=== PATIENT | female | born 2005 | race Caucasian/White ===

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

== ENCOUNTER 2025-01-11 18:35 | Emergency (ER) | payer MEDICAID, SELFPAY ==
--- OUTSIDE RECORDS SUMMARY | 2014-01-27 06:10 | XMS_ITS | Continuity of Care Document ---
Author Organization [facility] Address [address] [place] [address] Care Team Providers Care [employer] Guid[employer] Counselor Name Role Phone Unavailable Unavailable Unavailable Allergies, Adverse Reactions, Alerts Substance Reaction Status Criticality No Known Allergies Active No Inform ation Medications Medication Instructions Dosage Effective Dates (start - stop) Status Comments No Drug Therapy Prescribed Procedures Procedure Date OFFICE/OUTPATIENT VISIT, EST Most recent systolic blood pressure less than 130 Diast bp <80 mm hg VISUAL ACUITY SCREEN PURE TONE HEARING TEST, AIR PREV VISIT, NEW, AGE 5-11 Advance Directives Directive Yes / No Effective Date File Name No Information Encounters Encounter Description Practice Location Reason(s) For Visit Diagnoses Date Provider Providers Copied on Encounter [facility], [address], [place], [place], [id number] , [facility] [place] ear lavage (chief complaint) No Information 0- 4 No Information OFFICE/OUTPA TIENT VISIT, EST [facility], [address], [place], [place], [phone] , [facility] [place] concerns with hearing (chief complaint) ear wax (chief complaint) Excessive ear waxAllergic rhinitisURI, acuteDehydration 3-201 4 No Information PREV VISIT, NEW, AGE 5-11 [facility], [address], [place], [place], [phone] , [facility] [place] Well child - 8 Years (chief complaint) burning and pain w/ urination (chief complaint) Routine or child health checkRefractive errorsDehydrationU rethritisRoutine infant or child health check 8201 4 No Information Family History Family Member Type Diagnosis Age At Onset No Information Payers Payer name Insurance type Covered alliance party ID Juju cuenca(s) Hilario STROUD [id number] Social History Type Description Quantity Date Captured Comments Alcohol Use Details Unknown Caffeine Use Details Unknown Tobacco Use Status No Information Smoking Status No Information Sex Female Chief Complaint And Reason For Visit From encounter dated '01/27/2014 11:10'. ear lavage (chief complaint). Description: ear lavage given bilateral ears Reason For Referral Reason For Referral No Information Plan Of Treatment Date Type Action Status Future Order: Lab Order URINALYS IS, MACROSCOPIC ([id number]), Ordered on: Ordered Future Order: Lab Order CULTURE, URINE, ROUTINE (395), Ordered on: Ordered History Of Present Illness Encounter Date Complaint History Of Prese nt Illness ear lavage ear lavage given bilateral ears concerns with hearing ear wax Functional Status Date Functional Assessmen t No Information Medications Administered Medication Instructions Dosage Effective Dates (start - stop) Status Comments No Drug Therapy Prescribed Instructions Date Instruction Additional Infor awa Nurse appt for ear lavage of bot h ears Related to Excessive ear wax Loratadine (claritin ) or cetirizine (zyrtec) syrup two teaspoonfuls one time a day for itchy runny nose or itchy congested nose...stop if your child gets too sleepy or charles.... this medication is over the counter Related to Allergic rhinitis fever medication as needed Relat ed to URI, acute Drink enough water t o make urine clear or light yellow most of the time. It is normal for the urine to be very yellow when you first get up and right after taking a vitamin pill. Related to Dehydration Assessments Type Assessment Date No Information Patient Care Teams Name Effective Dates (start - stop) Status Members No Information
--- OUTSIDE RECORDS SUMMARY | 2024-04-27 09:12 | XMS_ITS | Continuity of Care Document ---
Author Organization [facility] Address [address] [address] Phone Care Team Providers Care Senior Military Analyst Name Role Phone Saba Garcia RN Unavailable Unavailable Allergies, Adverse Reactions, Alerts Substance Reaction Status Criticality [place] And Derivatives Hives(severe)Hive s(severe)Facial swelling(severe) Active No Information Medications Medication Instructions Dosage Effective Dates (start - stop) Status Comments prazosin 2 mg capsule take 1 capsule by oral route every bedtime 2 MG - Active prazosin 1 mg capsule take 1 capsule PO QHS with 2mg capsule for total 3mg dose - Active naltrexone 50 mg tablet take 1 tablet by oral route every day 50 MG - Active residential melatonin 1 mg tablet Take 1 tab po QHS PRN insomnia - Active residential buspirone 10 mg tablet take 1 tablet by oral route 2 times every day and 1 tab po daily PRN acute agitation - Active residential mirtazapine 15 mg tablet take 1 tablet by oral route every day before bedtime 15 MG - Active residential sertraline 100 mg tablet take 1.5 tablet by oral route every day 150 MG - Active residential nicotine 21 mg/24 hr daily transdermal patch apply 1 patch by transdermal route every day and remove at bedtime 21 MG - Active residential Procedures Procedure Date Non-Billable Service Diagnostic Assessment Telehealth 2023 Non-Billable Service RN ROSAURA Nsg Serv Non-Billable Service Non-Billable Service ROSAURA Case Mgmt ROSAURA Case Mgmt Room And Board ROSAURA Case Mgmt Room And Board Room And Board ROSAURA Case Mgmt ROSAURA Case Mgmt ROSAURA Case Mgmt ROSAURA IOP Telehealth Counseling/Therapy 53-90 min Room And Board OFFICE/OUTPATIENT VISIT, EST Room And Board RN ROSAURA Nsg Serv Room And Board Non-Billable Service Room And Board Room And Board Room And Board Room And Board ROSAURA IOP Telehealth RN ROSAURA Nsg Serv Counseling/Therapy 38-52 min Room And Board Room And Board Counseling/Therapy 53-90 min Room And Board Room And Board ROSAURA IOP Telehealth Room And Board Room And Board Room And Board ROASURA Case Mgmt Room And Board ROSAURA IOP OFFICE/OUTPATIENT VISIT, EST Room And Board Counseling/Therapy 53-90 min RN ROSAURA Nsg Serv Room And Board ROSAURA IOP ROSAURA Case Mgmt Room And Board ROSAURA IOP Telehealth Room And Board Room And Board ROSAURA Case Mgmt Non-Billable Service Room And Board Room And Board ROSAURA IOP Telehealth ROSAURA Case Mgmt Telehealth Room And Board Counseling/Therapy 38-52 min ROS[facility]A IOP Room And Board Counseling/Therapy 38-52 min Non-Billable Service Room And Board ROSAURA IOP Room And Board ROSAURA IOP Telehealth Room And Board Room And Board Room And Board ROSAURA IOP Telehealth Room And Board Counseling/Therapy 16-37 min [facility]A IOP Telehealth OFFICE/OUTPATIENT VISIT, EST RN ROSAURA Nsg Serv RN ROSAURA Nsg Serv Room And Board Non-Billable Service RN ROSAURA Nsg Serv Non-Billable Service Residential Treatment Room And Board Non-Billable Service Residential Treatment Room And Board Non-Billable Service Room And Board Residential Treatment Residential Treatment Room And Board Room And Board Residential Treatment Non-Billable Service Room And Board Residential Treatment Room And Board Residential Treatment Non-Billable Service RN ROSAURA Nsg Serv Non-Billable Service Room And Board Residential Treatment Non-Billable Service Residential Treatment Room And Board Non-Billable Service Non-Billable Service Non-Billable Service Non-Billable Service Room And Board May- Residential Treatment Residential Treatment Room And Board Residential Treatment Room And Board Room And Board Residential Treatment Non-Billable Service OFFICE/OUTPATIENT VISIT, EST Room And Board Residential Treatment Non-Billable Service Non-Billable Service RN ROSAURA Nsg Serv Residential Treatment Room And Board Residential Treatment Room And Board Residential Treatment Room And Board Non-Billable Service Non-Billable Service Room And Board Residential Treatment Room And Board Residential Treatment Residential Treatment Room And Board Non-Billable Service Room And Board Residential Treatment Non-Billable Service Residential Treatment Room And Board RN ROSAURA Nsg Serv Room And Board Residential Treatment Non-Billable Service Non-Billable Service Room And Board Residential Treatment Room And Board May- Residential Treatment Room And Board Residential Treatment Room And Board Residential Treatment OFFICE/OUTPATIENT VISIT, EST Residential Treatment Room And Board Non-Billable Service Non-Billable Service RN ROSAURA Nsg Serv Residential Treatment Room And Board Non-Billable Service Room And Board Residential Treatment Room And Board Residential Treatment Room And Board Residential Treatment Residential Treatment Room And Board Room And Board Residential Treatment RN ROSAURA Nsg Serv OFFICE/OUTPATIENT VISIT, EST Room And Board Residential Treatment Non-Billable Service Non-Billable Service Residential Treatment Room And Board Non-Billable Service Non-Billable Service Room And Board Residential Treatment Non-Billable Service Non-Billable Service Room And Board Residential Treatment Non-Billable Service Residential Treatment Room And Board Room And Board Residential Treatment Room And Board Residential Treatment OFFICE/OUTPATIENT VISIT, EST Room And Board Residential Treatment Non-Billable Service Non-Billable Service RN ROSAURA Nsg Serv Room And Board Residential Treatment Room And Board Residential Treatment Non-Billable Service Non-Billable Service RN ROSAURA Nsg Serv Room And Board Residential Treatment Room And Board Residential Treatment Residential Treatment Room And Board RN ROSAURA Nsg Serv Residential Treatment Room And Board PREV VISIT, EST, AGE 12-17 RN ROSAURA Nsg Serv Residential Treatment Room And Board Non-Billable Service Non-Billable Service Room And Board Residential Treatment Non-Billable Service Residential Treatment Room And Board RN ROSAURA Nsg Serv Residential Treatment Room And Board Residential Treatment Room And Board Room And Board Residential Treatment Residential Treatment Room And Board Non-Billable Service OFFICE/OUTPATIENT VISIT, EST RN ROS[facility]A Nsg Serv Room And Board Residential Treatment Non-Billable Service Non-Billable Service Non-Billable Service Residential Treatment Room And Board Non-Billable Service RN ROSAURA Nsg Serv Room And Board Residential Treatment Non-Billable Service Non-Billable Service Non-Billable Service Residential Treatment Room And Board Room And Board Residential Treatment Residential Treatment Room And Board Non-Billable Service Non-Billable Service Room And Board Residential Treatment Non-Billable Service OFFICE/OUTPATIENT VISIT, EST Residential Treatment Room And Board Non-Billable Service Non-Billable Service RN ROSAURA Nsg Serv Room And Board Residential Treatment Room And Board Residential Treatment Non-Billable Service Room And Board Residential Treatment Room And Board Residential Treatment Residential Treatment Room And Board Non-Billable Service Non-Billable Service Room And Board Residential Treatment Non-Billable Service OFFICE/OUTPATIENT VISIT, EST RN ROSAURA Nsg Serv Non-Billable Service Non-Billable Service Non-Billable Service Room And Board Residential Treatment Non-Billable Service RN ROSAURA Nsg Serv Non-Billable Service Non-Billable Service Non-Billable Service Residential Treatment Room And Board Non-Billable Service Residential Treatment Room And Board Room And Board Residential Treatment Room And Board Residential Treatment Non-Billable Service RN ROSAURA Nsg Serv Room And Board Residential Treatment OFFICE/OUTPATIENT VISIT, [facility] Residential Treatment Room And Board Non-Billable Service Non-Billable Service Non-Billable Service RN ROSAURA Nsg Serv Residential Treatment Room And Board Non-Billable Service Non-Billable Service Non-Billable Service Residential Treatment Room And Board Non-Billable Service Non-Billable Service Residential Treatment Room And Board Non-Billable Service Non-Billable Service Residential Treatment Room And Board Room And Board Residential Treatment Room And Board Residential Treatment Non-Billable Service RN ROSAURA Nsg Serv Room And Board Residential Treatment Non-Billable Service Non-Billable Service Residential Treatment Room And Board Diagnostic Assessment Telehealth 2022 Advance Directives Directive Yes / No Effective Date File Name No Information Encounters Encounter Description Practice Location Reason(s) For Visit Diagnoses Date Provider Providers [facility]ied on [facility] [address], [place], [id number], [place] tel:[phone] [facility] [place] No Information 5 Jose Walter. [address] [place], [id number], [place]. tel:[phone] [facility], [address] [place], [id number], [place] tel:+ [phone] [facility] [place] Opioid Use Disorder, Severe 4 Vernon Luz. [address] [place], [place], [id number], [place]. tel:[phone] [facility], [address] [place], [id number], [place] tel: [phone] [facility] [place] Opioid Use Disorder, SevereSedativ e, Hypnotic, or Anxiolytic Use Disorder, SevereStimula nt use disorder, severeHalluci nogen useCannabis Use Disorder, SevereNicotin e dependence, unspecified, uncomplicated Other psychoactive substance use, unspecified, uncomplicated Major depressive disorder, recurrent, unspecifiedAn xietyPost-tra umatic stress disorder, unspecifiedEa ting disorder, unspecifiedEn counter for routine child health examination without abnormal findings 4 Vernon Luz. [address] [place], [place], [id number], [place]. tel:[phone] [facility], [address] [place], [id number], [place] tel:+ [phone] [facility] [place] Post-traumati c stress disorder, unspecified 4 Paula Corona. [address] [facility], [place], [id number], [place]. tel:[phone] [facility], [address], [place], [id number], [place] tel:+ [phone] [facility] [place] Opioid Use Disorder, Severe 4 Abel Juana. [address] [place], [place], [id number], [place]. tel:+ [phone] [facility], [address], [id number], [place] tel: [phone] [facility] [place] Opioid Use Disorder, Severe July-0 4 Abel Medinaan. [address] [place], [place], [id number], [place]. tel:[phone] [facility], [address] [place], [id number], [place] tel:+ [phone] [facility] [place] Opioid Use Disorder, SevereSedativ e, Hypnotic, or Anxiolytic Use Disorder, SevereStimula nt use disorder, severeHalluci nogen useNicotine dependence, unspecified, uncomplicated Other psychoactive substance use, unspecified, uncomplicated Major depressive disorder, recurrent, unspecifiedAn xietyPost-tra umatic stress disorder, unspecified Apr-3 4 Michellejalen Katerin. [address] [place], [place], [id number], [place]. tel: [facility], [address], [place], [place], [id number], [place] tel: [phone] [facility] [place] Opioid Use Disorder, Severe Jun- 4 No Information [facility], [address] [place], [place], [id number], [place] tel:+ [phone] [facility] [place] Opioid Use Disorder, Severe Jun- 4 Abel Arias. [address] [place], [place], [id number], [place]. tel: [phone] [facility], [address], [place], [place], [id number], [place] tel:+ [phone] [facility] [place] Opioid Use Disorder, Severe Jun- 4 No Information [facility], [address], [place], [place], [id number], [place] tel:+ [phone] [facility] [place] Opioid Use Disorder, Severe Jun- 4 No Information [facility], [address], [place], [place], [id number], [place] tel:+ [phone] [facility] [place] No Information Apr-2 4 No Information [facility], [address], [place], [place], [id number], [place] tel:+ [phone] [facility] [place] Opioid Use Disorder, Severe Apr-2 4 No Information [facility], [address], [place], [place], [id number], [place] tel:+ [phone] [facility] [place] No Information Apr-2 4 No Information [facility], [address], [place], [place], [id number], [place] tel:+ [phone] [facility] [place] No Information Apr-2 4 No Information [facility], [address], [place], [place], [id number], [place] tel:+ [phone] [facility] [place] Opioid Use Disorder, Severe Apr-2 4 No Information [facility], [address], [place], [place], [id number], [place] tel:+ [phone] [facility] [place] Opioid Use Disorder, Severe Apr-2 4 No Information [facility], [address], [place], [place], [id number], [place] tel:+ [phone] [facility] [place] Opioid Use Disorder, Severe Apr-2 4 No Information [facility], [address], [place], [place], [id number], [place] tel:+ [phone] [facility] [place] Opioid Use Disorder, Severe Apr-2 4 Jamie Collins. [address] [place], [place], [id number], [place]. tel:+ Counseling/T herapy 53-90 min [facility], [address], [place], [place], [id number], [place] tel:+ [phone] [facility] [place] Opioid Use Disorder, Severe Apr-2 4 Abel Arias. [address] [place], [place], [id number], [place]. tel:[phone] [facility], [address] [place], [id number], [place] tel: [phone] [facility] [place] No Information Jun- 4 No Information OFFICE/OUTPA TIENT VISIT, [facility], [address] [place], [id number], [place] tel: [phone] [facility] [place] hpi (chief complaint) Opioid Use Disorder, SevereMajor depressive disorder, recurrent, unspecifiedPo st-traumatic stress disorder, unspecifiedAn xietyNicotine dependence, unspecified, uncomplicated Other psychoactive substance use, unspecified, uncomplicated Stimulant use disorder, severeSedativ e, Hypnotic, or Anxiolytic Use Disorder, Severe Jun- 4 Paula Corona. [address] [facility], [place], [id number], [place]. tel: [phone] [facility], [address] [place], [id number], [place] tel: [phone] [facility] [place] No Information No Information [facility], [address] [place], [id number], [place] tel: [phone] [facility] [place] Opioid Use Disorder, SevereSedativ e, Hypnotic, or Anxiolytic Use Disorder, SevereStimula nt use disorder, severeHalluci nogen useNicotine dependence, unspecified, uncomplicated Other psychoactive substance use, unspecified, uncomplicated Major depressive disorder, recurrent, unspecifiedAn xietyPost-tra umatic stress disorder, unspecified Jun- 4 Linda Conklin. [address] [place], [place], [id number], [place]. tel: [facility], [address] [place], [id number], [place] tel: [phone] [facility] [place] No Information No Information [facility], [address], [place], [id number], [place] tel:+ [phone] [facility] [place] Opioid Use Disorder, Severe Jun- 4 No Information [facility], [address], [place], [place], [id number], [place] tel:+ [phone] [facility] [place] No Information Jun-2 4 No Information [facility], [address], [place], [place], [id number], [place] tel:+ [phone] [facility] [place] Opioid Use Disorder, Severe Jun- 4 Jamie Collins. [address] [place], [place], [id number], [place]. tel:+ [email or web address], [address] [place], [id number], [place] tel:+ [phone] [facility] [place] No Information Jun- 4 No Information [facility], [address], [place], [place], [id number], [place] tel:+ [phone] [facility] [place] No Information Jun-2 4 No Information [facility], [address] [place], [place], [id number], [place] tel:+ [phone] [facility] [place] No Information Jun- 4 No Information [facility], [address], [place], [place], [id number], [place] tel:+ [phone] [employer] [place] Opioid Use Disorder, Severe Jun- 4 Jamie Collins. [address] [place], [place], [id number], [place]. tel:+ [facility], [address], [place], [place], [address], [place] tel:+ [phone] [facility] [place] Opioid Use Disorder, SevereSedativ e, Hypnotic, or Anxiolytic Use Disorder, SevereStimula nt use disorder, severeHalluci nogen useNicotine dependence, unspecified, uncomplicated Other psychoactive substance use, unspecified, uncomplicated Major depressive disorder, recurrent, unspecifiedAn xietyPost-tra umatic stress disorder, unspecified Apr-1 9-202 4 Linda Conklin. [address] [place], [place], [id number], [place]. tel:+[phone] Counseling/T herapy 38-52 min [facility], [address], [place], [place], [id number], [place] tel:[phone] [facility] [place] Opioid Use Disorder, Severe 4 Abel Arias. [address] [place], [place], [id number], [place]. tel:+ [phone] [facility], [address], [place], [place], [id number], [place] tel:+ [phone] [facility] [place] No Information 4 No Information [facility], [address], [place], [place], [id number], [place] tel:[phone] [facility] [place] No Information 4 No Information Counseling/T herapy 53-90 min [facility], [address], [place], [place], [id number], [place] tel:[phone] [facility] [place] Opioid Use Disorder, SevereMajor depressive disorder, recurrent, unspecified 4 Vernon Luz. [address] [place], [place], [address], [place]. tel:+ [phone] [facility], [address], [place], [place], [id number], [place] tel:[phone] [facility] [place] No Information 4 No Information [facility], [address], [place], [place], [id number], [place] tel:[phone] [facility] [place] No Information 4 No Information [facility], [address], [place], [place], [id number], [place] tel:[phone] [facility] [place] Opioid Use Disorder, Severe 4 Abel Arias. [address] [place], [place], [id number], [place]. tel:+[phone] [facility], [address], [place], [id number], [place] tel:+ [phone] [facility] [place] No Information 4 No Information [facility], [address], [id number], [place] tel:+ [phone] [facility] [place] No Information 4 No Information [email or web address], [address], [place], [place], [id number], [place] tel:+ [phone] [facility] [place] No Information 4 No Information [facility], [address], [place], [place], [id number], [place] tel:+ [phone] [facility] [place] Opioid Use Disorder, Severe 4 No Information [facility], [address], [place], [id number], [place] tel:+ [phone] [facility] [place] No Information 4 No Information [facility], [address], [place], [id number], [place] tel:+ [phone] [facility] [place] Opioid Use Disorder, Severe 4 Amilcar Schaeffer. [address] [place], [place], [id number], [place]. tel:[phone] OFFICE/OUTPA TIENT VISIT, [facility], [address], [place], [id number], [place] tel:+ [phone] [facility] [place] HPI (chief complaint) Post-traumati c stress disorder, unspecifiedAn xietyEating disorder, unspecifiedOp ioid Use Disorder, SevereSedativ e, Hypnotic, or Anxiolytic Use Disorder, SevereStimula nt use disorder, severeNicotin e dependence, unspecified, uncomplicated Other psychoactive substance use, unspecified, uncomplicated 4 Paula Corona. [address] [place] [address], [place], [place], [id number], . tel:+ [phone] [facility], [address], [place], [id number], [place] tel: [phone] [facility] [place] No Information Jun- 4 No Information Counseling/T herapy 53-90 min [facility], [address], [place], [id number], [place] tel: [phone] [facility] [place] Major depressive disorder, recurrent, unspecifiedOp ioid Use Disorder, Severe Apr- 0 4 Vernon Luz. [address] [place], [place], [id number], [place]. tel:+ [phone] [facility], [address] [place], [place], [address], [place] tel: [phone] [facility] [place] Opioid Use Disorder, SevereSedativ e, Hypnotic, or Anxiolytic Use Disorder, SevereStimula nt use disorder, severeHalluci nogen useNicotine dependence, unspecified, uncomplicated Other psychoactive substance use, unspecified, uncomplicated Major depressive disorder, recurrent, unspecifiedAn xietyPost-tra umatic stress disorder, unspecified Apr- 4 Linda Conklin. [address] [place], [place], [id number], [place]. tel:+ [facility], [address], [place], [address], [place] tel: [phone] [facility] [place] No Information Jun- 4 No Information [facility] [employer] [facility], [address], [place], [id number], [place] tel: [phone] [facility] [place] Opioid Use Disorder, Severe Apr-0 4 Amilcar Schaeffer. [address] [place], [place], [id number], [place]. tel:[phone] [facility], [address], [place], [address], [place] tel: [phone] [facility] [place] Opioid Use Disorder, Severe Apr-0 9-202 4 No Information [facility], [address], [place], [place], [id number], [place] tel:+ [phone] [facility] [place] No Information Apr-0 9-202 4 No Information [facility], [address], [place], [place], [id number], [place] tel:+ [phone] [facility] [place] Opioid Use Disorder, Severe Apr-0 8-202 4 Jamie Collins. [address] [place], [place], [id number], [place]. tel:+[phone] [facility], [address], [place], [place], [address], [place] tel:+ [phone] [facility] [place] No Information Apr-0 8-202 4 No Information [facility], [address], [place], [place], [id number], [place] tel:+ [phone] [facility] [place] No Information Apr-0 7-202 4 No Information [facility], [address], [place], [place], [address], [place] tel:+ [phone] [facility] [place] Opioid Use Disorder, Severe Apr-0 6-202 4 No Information [facility], [address], [place], [place], [id number], [place] tel:+ [phone] [facility] [place] Opioid Use Disorder, Severe Apr-0 6-202 4 No Information [facility], [address], [place], [place], [address], [place] tel:+ [phone] [facility] [place] No Information Apr-0 6-202 4 No Information [facility], [address], [place], [place], [id number], [place] tel:+ [phone] [facility] [place] No Information Apr-0 6-202 4 No Information [facility], [address], [place], [place], [id number], [place] tel:+ [phone] [facility] [place] Opioid Use Disorder, Severe Apr-0 5-202 4 Jamie Collins. [address] [place], [place], [id number], [place]. tel:+[phone] [facility], [address], [place], [place], [id number], [place] tel:+ [phone] [facility] [place] Opioid Use Disorder, Severe Apr-0 202 4 Abel Arias. [address] [place], [place], [id number], [place]. tel:+ [phone] [facility], [address], [place], [place], [id number], [place] tel:+ [phone] [facility] [place] No Information Apr-0 4 No Information Counseling/T herapy 38-52 min [facility], [address], [place], [place], [id number], [place] tel:+ [phone] [facility] [place] Opioid Use Disorder, Severe Apr-0 4 Abel Arias. [address] [place], [place], [id number], [place]. tel:+ [phone] [facility], [address], [place], [place], [address], [place] tel:+ [phone] [facility] [place] No Information Apr-0 4 Paula Corona. [address] [facility], [place], [place], [id number], [place]. tel:+ [phone] [facility], [address], [place], [place], [id number], [place] tel:+ [phone] [facility] [place] Opioid Use Disorder, Severe Apr-0 4 Fitzgerald Maksim. [address] [place], [place], [id number], [place]. tel:+ [phone] [facility], [address], [place], [place], [address], [place] tel:+ [phone] [facility] [place] No Information Apr-0 4 No Information Counseling/T herapy 38-52 min [facility], [address], [place], [place], [address], [place] tel:+ [phone] [facility] [place] Opioid Use Disorder, SevereAnxiety Apr-0 3-202 4 Vernon Luz. [address] [place], [place], [id number], [place]. tel: [phone] [facility], [address], [place], [place], [address], [place] tel:+ [phone] [facility] [place] Opioid Use Disorder, Severe Apr-0 3-202 4 Abel Arias. [address] [place], [place], [address], [place]. tel: [phone] [facility], [address], [place], [place], [id number], [place] tel:+ [phone] [facility] [place] No Information Apr-0 3-202 4 No Information [facility], [address] [place] [address], [place], [place], [address], [place] tel:+ [phone] [facility] [place] Opioid Use Disorder, Severe Apr-0 2-202 4 Amilcar Schaeffer. [address] [place], [place], [id number], [place]. tel: [phone] [facility], [address] [place], [place], [address], [place] tel:+ [phone] [facility] [place] No Information Apr-0 2202 4 No Information [facility], [address] [place], [place], [place], [address], [place] tel:+ [phone] [facility] [place] Opioid Use Disorder, Severe Apr-0 -202 4 Jamie Collins. [address] [place], [place], [address], [place]. tel:+ [facility], [address], [place], [place], [address], [place] tel:+ [phone] [facility] [place] No Information Apr-0 -202 4 No Information [facility], [address] [place] [address], [place], [place], [address], [place] tel:+ [phone] [facility] [place] No Information May-3 4 No Information [facility], [address], [place], [address], [place] tel:+ [phone] [facility] [place] No Information May-3 4 No Information [facility], [address] [place], [id number], [place] tel:+ [phone] [facility] [place] Opioid Use Disorder, Severe May- 4 Jamie Karina. [address] [place], [place], [address], [place]. tel:+ [employer], [address], [place], [address], [place] tel:+ [phone] [facility] [place] No Information May- 4 No Information Counseling/T herapy 16-37 min [place] [employer], [address] [place] [address], [address], [place] tel:+ [phone] [facility] [place] Opioid Use Disorder, Severe May- 4 Abel Arias. [address] [place], [place], [address], [place]. tel:[phone] [facility], [address] [place], [place], [address], [place] tel:[phone] [facility] [place] Stimulant use disorder, severe May- 4 Amilcar Schaeffer. [address] [place], [place], [address], [place]. tel:[phone] OFFICE/OUTPA TIENT VISIT, [facility], [address] [place] [address] [place], [place], [address], [place] tel:[phone] [facility] [place] HPI (chief complaint) Post-traumati c stress disorder, unspecifiedAn xietyEating disorder, unspecifiedOp ioid Use Disorder, SevereSedativ e, Hypnotic, or Anxiolytic Use Disorder, SevereStimula nt use disorder, severeNicotin e dependence, unspecified, uncomplicated Other psychoactive substance use, unspecified, uncomplicated 4 Paula Corona. [address] [facility], [place], [address], [place]. tel:+ [phone] [facility], [address] [place], [address], [place] tel:+ [phone] [facility] [place] Opioid Use Disorder, SevereSedativ e, Hypnotic, or Anxiolytic Use Disorder, SevereStimula nt use disorder, severeHalluci nogen useNicotine dependence, unspecified, uncomplicated Other psychoactive substance use, unspecified, uncomplicated Major depressive disorder, recurrent, unspecifiedAn xietyPost-tra umatic stress disorder, unspecified 4 Linda Conlkin. [address] [place], [place], [address], [place]. tel: [facility], [address] [place], [id number], [place] tel: [phone] [facility] [place] Opioid Use Disorder, SevereSedativ e, Hypnotic, or Anxiolytic Use Disorder, SevereStimula nt use disorder, severeHalluci nogen useNicotine dependence, unspecified, uncomplicated Other psychoactive substance use, unspecified, uncomplicated Major depressive disorder, recurrent, unspecifiedAn xiety 4 Linda Conklin. [address] [place], [place], [address], [place]. tel: [facility], [address], [place], [address], [place] tel: [phone] [facility] [place] No Information 4 No Information [facility] [employer], [address], [place], [address], [place] tel:+ [phone] [facility] [place] Opioid Use Disorder, Severe 4 Vernon Callesah. [address] [place], [place], [address], [place]. tel:[phone] [facility], [address], [place], [address], [place] tel:+ [phone] [facility] [place] Opioid Use Disorder, SevereSedativ e, Hypnotic, or Anxiolytic Use Disorder, SevereStimula nt use disorder, severeHalluci nogen useNicotine dependence, unspecified, uncomplicated Other psychoactive substance use, unspecified, uncomplicated Major depressive disorder, recurrent, unspecifiedAn xietyPost-tra umatic stress disorder, unspecified 4 Linda Conklin. [address] [place], [place], [address], [place]. tel:[phone] [facility], [address] [place], [place], [address], [place] tel:+ [phone] [facility] [employer] [place] Opioid Use Disorder, Severe 4 Vernon Luz. [address] [place], [place], [address], [place]. tel:[phone] [facility], [address] [place], [place], [address], [place] tel:+ [phone] [facility] [place] Opioid Use Disorder, Severe 4 No Information [facility], [address] [place] [address] [place], [place], [address], [place] tel:+ [phone] [facility] [place] No Information 4 No Information [facility], [address] [place] [address] [place], [place], [address], [place] tel:+ [phone] [facility] [place] No Information 4 No Information [facility], [address] [place], [place], [address], [place] tel:+ [phone] [facility] [place] Opioid Use Disorder, Severe 4 No Information [facility], [address] [place], [place], [address], [place] tel:+ [phone] [facility] [place] No Information 4 No Information [facility], [address] [place] [address] [place], [place], [address], [place] tel:+ [phone] [facility] [place] No Information 4 No Information [facility], [address] [place] [address], [place], [place], [address], [place] tel:+ [phone] [facility] [place] Opioid Use Disorder, Severe 4 No Information [facility], [address] [place] [address], [place], [place], [address], [place] tel:+ [phone] [facility] [place] No Information May- 4 No Information [facility], [address] [place] [address], [place], [place], [address], [place] tel:+ [phone] [facility] [place] No Information May- 4 No Information [facility], [address] [place] [address], [place], [place], [address], [place] tel:+ [phone] [facility] [place] No Information 4 No Information [facility], [address] [place] [address], [place], [place], [address], [place] tel:+ [phone] [facility] [place] No Information May- 4 No Information [facility], [address] [place] [address], [place], [place], [address], [place] tel:+ [phone] [facility] [place] No Information 4 No Information [facility], [address] [place] [address], [place], [place], [address], [place] tel:+ [phone] [facility] [place] No Information 4 No Information [facility], [address] [place] [address], [place], [place], [address], [place] tel:+ [phone] [facility] [place] Opioid Use Disorder, Severe 4 No Information [facility], [address] [place] [address], [place], [place], [address], [place] tel:+ [phone] [facility] [place] No Information 4 No Information [facility], [address] [place] [address], [place], [place], [address], [place] tel:+ [phone] [facility] [place] No Information 4 No Information [facility], [address], [place], [place], [address], [place] tel:+ [phone] [facility] [employer] [place] No Information 4 Paula Corona. [address] [facility], [place], [place], [address], [place]. tel:+ [phone] [facility], [address], [place], [place], [address], [place] tel:+ [phone] [facility] [employer] [place] No Information 4 No Information [employer], [address] [place] [address], [place], [place], [address], [place] tel:+ [phone] [facility] [employer] [place] No Information 4 No Information [employer], [address], [place], [place], [address], [place] tel: [phone] [facility] [employer] [place] Opioid Use Disorder, Severe 4 Vernon Callesah. [address] [place], [place], [address], [place]. tel:+ [phone] [facility], [address], [place], [address], [place] tel: [phone] [facility] [employer] [place] Opioid Use Disorder, SevereSedativ e, Hypnotic, or Anxiolytic Use Disorder, SevereStimula nt use disorder, severeHalluci nogen useNicotine dependence, unspecified, uncomplicated Other psychoactive substance use, unspecified, uncomplicated Major depressive disorder, recurrent, unspecifiedAn xietyPost-tra umatic stress disorder, unspecified 4 Linda Conklin. [address] [place], [place], [address], [place]. tel:+ [facility], [address], [place], [address], [place] tel:+ [phone] [facility] [employer] [place] Opioid Use Disorder, SevereAnxiety 4 Vernon Natty. [address] [place], [place], [address], [place]. tel:[phone] [facility], [address] [place] [address], [place], [place], [address], [place] tel: [phone] [facility] [place] No Information May- 4 No Information [facility], [address] [place] [address], [place], [place], [address], [place] tel: [phone] [facility] [place] No Information 4 No Information [facility], [address] [place] [address], [place], [place], [address], US tel: [phone] [facility] [place] Opioid Use Disorder, Severe 4 No Information [facility], [address] [place] [address], [place], [place], [address], [place] tel: [phone] [facility] [place] No Information 4 No Information [facility], [address] [place] [address], [place], [place], [address], [place] tel: [phone] [facility] [place] No Information 4 No Information [facility], [address] [place] [address], [place], [place], [address], [place] tel: [phone] [facility] [place] Opioid Use Disorder, Severe 4 Nimo Ruth. [address] [place], [address], [place]. [facility], [address] [place] [address], [place], [place], [address], [place] tel: [phone] [facility] [place] No Information 4 Nimo Ruth. [address] [place], [address], [place]. [facility], [address] [place] [address], [place], [place], [address], [place] tel: [phone] [facility] [place] Opioid Use Disorder, Severe 4 No Information [facility], [address] [place] [address], [place], [place], [address], US tel: [phone] [facility] [place] Opioid Use Disorder, Severe 4 No Information [facility], [address] [place] [address], [place], [place], [address], [place] tel: [phone] [facility] [place] No Information 4 No Information [facility], [address] [place] [address], [place], [place], [address], [place] tel:+ [phone] [facility] [place] No Information 4 No Information [facility], [address] [place] [address], [place], [place], [address], [place] tel:+ [phone] [facility] [place] No Information 4 No Information [facility], [address] [place] [address], [place], [place], [address], [place] tel:+ [phone] [facility] [place] No Information 4 No Information [facility], [address] [place] [address], [place], [place], [address], [place] tel:+ [phone] [facility] [place] No Information 4 No Information [facility], [address] [address], [place], [place], [address], [place] tel:+ [phone] [facility] [place] No Information 4 No Information [facility], [address] [place] [address], [place], [place], [address], [place] tel:+ [phone] [facility] [place] No Information 4 No Information [facility], [address] [place] [address], [place], [place], [address], [place] tel:+ [phone] [facility] [place] No Information 4 No Information [facility], [address] [place] [address], [place], [place], [address], [place] tel:+ [phone] [facility] [place] Opioid Use Disorder, Severe 4 No Information OFFICE/OUTPA TIENT VISIT, [facility], [address] [place] [address], [place], [place], [address], [place] tel:+ [phone] [facility] [place] HPI (chief complaint) Post-traumati c stress disorder, unspecifiedMa gwen depressive disorder, recurrent, unspecifiedAn xietyOpioid Use Disorder, SevereStimula nt use disorder, severeSedativ e, Hypnotic, or Anxiolytic Use Disorder, SevereHalluci nogen useNicotine dependence, unspecified, uncomplicated 4 [facility]. [address] [facility], [place], [place], [address], [place]. tel:[phone] [facility], [address] [place] [address], [place], [place], [address], [place] tel:[phone] [facility] [place] No Information No Information [employer], [address] [address], [place], [place], [address], [place] tel:[phone] [facility] [employer] [place] No Information No Information [facility], [address] [place] [address], [place], [place], [address], [place] tel:[phone] [facility] [place] Major depressive disorder, recurrent, unspecifiedAn xiety 4 [facility]. [address] [place], [place], [address], [place]. tel:[phone] [facility], [address], [place], [address], [place] tel:[phone] [facility] [place] Opioid Use Disorder, Severe 4 [facility]. [address] [place], [place], [address], [place]. tel:[phone] [facility], [address] [place], [address], [place] tel:[phone] [facility] [place] Opioid Use Disorder, SevereSedativ e, Hypnotic, or Anxiolytic Use Disorder, SevereStimula nt use disorder, severeHalluci nogen useNicotine dependence, unspecified, uncomplicated Other psychoactive substance use, unspecified, uncomplicated Major depressive disorder, recurrent, unspecifiedAn xietyPost-tra umatic stress disorder, unspecified 4 Linda Conklin. [address] [place], [place], [address], [place]. tel:[phone] [facility], [address] [place] [address], [place], [place], [address], [place] tel:+ [phone] [facility] [employer] [place] No Information 4 No Information [facility], [address] [place] [address], [place], [place], [address], [place] tel:+ [phone] [facility] [employer] [place] No Information 4 No Information [facility], [address] [place] [address], [place], [place], [address], [place] tel:+ [phone] [facility] [place] No Information 4 No Information [facility], [address] [place] [address], [place], [place], [address], [place] tel:+ [phone] [facility] [place] No Information 4 No Information [facility], [address] [place] [address], [place], [place], [address], [place] tel:+ [phone] [facility] [place] No Information 4 No Information [facility], [address] [place] [address], [place], [place], [address], [place] tel:+ [phone] [facility] [place] No Information 4 No Information [facility], [address] [place] [address], [place], [place], [address], [place] tel:+ [phone] [facility] [place] No Information 4 Greggfrandy Flory. [address] [place], [address], [place]. [facility], [address] [place] [address], [place], [place], [address], [place] tel:+ [phone] [facility] [place] Opioid Use Disorder, Severe 4 Nimo Ruth. [address] [place], [address], [place]. [facility], [address] [place] [address], [place], [place], [address], [place] tel:+ [phone] [facility] [place] No Information Mar-1 0-202 4 No Information [facility], [address] [place] [address], [place], [place], [address], [place] tel:+ [phone] [facility] [place] No Information Mar-1 0-202 4 No Information [facility], [address] [place] [address], [place], [place], [address], [place] tel:+ [phone] [facility] [place] No Information Mar-0 9-202 4 No Information [facility], [address] [place] [address], [place], [place], [address], [place] tel:+ [phone] [facility] [place] No Information Mar-0 9- 4 No Information [facility], [address] [place] [address], [place], [place], [address], [place] tel:+ [phone] [facility] [place] No Information Mar-0 8-202 4 No Information [facility], [address] [place] [address], [place], [place], [address], [place] tel:+ [phone] [facility] [place] No Information Mar-0 8-202 4 No Information [facility], [address] [place] [address], [place], [place], [address], [place] tel:+ [phone] [facility] [place] Opioid Use Disorder, Severe Mar-0 7-202 4 No Information [facility], [address] [place] [address], [place], [place], [address], [place] tel:+ [phone] [facility] [place] No Information Mar-0 7-202 4 No Information [facility], [address] [place] [address], [place], [place], [address], [place] tel:+ [phone] [facility] [place] No Information Mar-0 7-202 4 No Information [facility], [address] [address], [place], [place], [address], [place] tel:+ [phone] [facility] [place] Opioid Use Disorder, Severe Mar-0 6-202 4 Vernon Luz. [address] [place], [address], . tel:[phone] [facility], [address], [place], [address], [place] tel:+ [phone] [facility] [place] No Information Mar-0 4 No Information [facility], [address], [place], [address], [place] tel:+ [phone] [facility] [place] No Information Mar-0 6 4 No Information [employer], [address] [place] [place], [address], [place] tel:+ [phone] [facility] [place] Opioid Use Disorder, SevereSedativ e, Hypnotic, or Anxiolytic Use Disorder, SevereStimula nt use disorder, severeHalluci nogen useNicotine dependence, unspecified, uncomplicated Other psychoactive substance use, unspecified, uncomplicated Major depressive disorder, recurrent, unspecifiedAn xietyPost-tra umatic stress disorder, unspecifiedEa ting disorder, unspecified Mar-0 - 4 Linda Conklin. [address] [place], [place], [address], [place]. tel:[phone] [facility], [address], [place], [address], [place] tel:+ [phone] [facility] [place] No Information Mar-0 4 No Information [facility], [address], [place], [address], [place] tel:+ [phone] [facility] [place] No Information Mar-0 4 No Information [facility], [address] [place], [address], [place] tel:+ [phone] [facility] [place] No Information Mar-0 4 Greggfrandy Flory. [address] [place], [address], [place]. [facility], [address] [place] [place], [address], [place] tel:+ [phone] [facility] [place] Opioid Use Disorder, Severe Mar-0 4 No Information [facility], [address] [place], [address], [place] tel:+ [phone] [facility] [place] No Information Mar-0 4- 4 No Information [facility], [address] [place] [address] [place], [place], [address], [place] tel:+ [phone] [facility] [place] No Information Mar-0 4- 4 No Information [facility], [address] [place], [place], [address], [place] tel:+ [phone] [facility] [place] No Information Mar-0 3- 4 No Information [facility], [address] [place] [address] [place], [place], [address], [place] tel:+ [phone] [facility] [place] No Information Mar-0 3- 4 No Information [facility], [address] [place], [place], [address], [place] tel:+ [phone] [facility] [place] No Information Mar-0 2- 4 No Information [facility], [address], [place], [address], [place] tel:+ [phone] [facility] [place] No Information Mar-0 2- 4 No Information [facility], [address], [place], [address], [place] tel:+ [phone] [facility] [place] No Information Mar-0 - 4 No Information [facility], [address], [place], [address], [place] tel:+ [phone] [facility] [place] No Information Mar-0 - 4 No Information OFFICE/OUTPA TIENT VISIT, [facility], [address], [place], [address], [place] tel:+ [phone] [facility] [place] HPI (chief complaint) Post-traumati c stress disorder, unspecifiedMa gwen depressive disorder, recurrent, unspecifiedAn xietyOpioid Use Disorder, SevereStimula nt use disorder, severeSedativ e, Hypnotic, or Anxiolytic Use Disorder, SevereHalluci nogen useNicotine dependence, unspecified, uncomplicated 4 Paula Chloe. [address] [facility], [place], [address], [place]. tel:[phone] [facility], [address] [place], [address], [place] tel:+ [phone] [facility] [place] No Information 4 No Information [facility], [address] [place], [address], [place] tel:[phone] [facility] [place] No Information 4 No Information [facility], [address] [place], [address], [place] tel:+ [phone] [facility] [place] Major depressive disorder, recurrent, unspecifiedAn xietyPost-tra umatic stress disorder, unspecified 4 [facility]. [address] [place], [place], [address], [place]. tel:[phone] [facility], [address] [place], [address], [place] tel:[phone] [facility] [place] Opioid Use Disorder, SevereSedativ e, Hypnotic, or Anxiolytic Use Disorder, SevereStimula nt use disorder, severe 4 [facility]. [address] [place], [place], [address], [place]. tel:[phone] [facility], [address] [place], [address], [place] tel:[phone] [facility] [place] Opioid Use Disorder, SevereSedativ e, Hypnotic, or Anxiolytic Use Disorder, SevereStimula nt use disorder, severeHalluci nogen useNicotine dependence, unspecified, uncomplicated Other psychoactive substance use, unspecified, uncomplicated Major depressive disorder, recurrent, unspecifiedAn xietyPost-tra umatic stress disorder, unspecified 4 Linda Conklin. [address] [place], [place], [address], . tel:+ [facility], [address] [address], [place], [place], [address], [place] tel:+ [phone] [facility] [place] No Information b- 4 No Information [facility], [address] [address], [place], [place], [address], [place] tel:+ [phone] [facility] [place] No Information 4 No Information [facility], [address] [address], [place], [place], [address], [place] tel:+ [phone] [facility] [place] Anxiety Apr- 4 No Information [facility], [address] [address], [place], [place], [address], [place] tel:+ [phone] [facility] [place] No Information 4 No Information [facility], [address] [place] [address], [place], [place], [address], [place] tel:+ [phone] [employer] [place] No Information 4 No Information [facility], [address] [address], [place], [place], [address], [place] tel:+ [phone] [facility] [place] No Information 4 No Information [facility], [address] [address], [place], [place], [address], [place] tel:+ [phone] [facility] [place] No Information Apr- 4 No Information [facility], [address] [place] [address], [place], [place], [address], [place] tel:+ [phone] [employer] [place] No Information 4 No Information [facility], [address] [place] [address], [place], [place], [address], [place] tel:+ [phone] [employer] [place] No Information 4 No Information [facility], [address] [place] [address], [place], [place], [address], [place] tel:+ [phone] [facility] [place] No Information Apr- 4 No Information [employer], [address], [place], [place], [address], [place] tel: [phone] [facility] [place] No Information 4 No Information [facility], [address], [place], [place], [address], [place] tel: [phone] [facility] [place] No Information 4 No Information [facility], [address], [place], [place], [address], [place] tel: [phone] [facility] [place] No Information No Information [employer], [address], [place], [place], [address], [place] tel: [phone] [facility] [place] Opioid Use Disorder, SevereSedativ e, Hypnotic, or Anxiolytic Use Disorder, SevereStimula nt use disorder, severeHalluci nogen useOther psychoactive substance use, unspecified, uncomplicated Major depressive disorder, recurrent, unspecifiedNi cotine dependence, unspecified, uncomplicated AnxietyPost-t raumatic stress disorder, unspecified 4 Linda Conklin. [address] [place], [place], [address], [place]. tel: OFFICE/OUTPA TIENT VISIT, [facility] [employer], [address], [place], [address], [place] tel: [phone] [facility]365 [employer] [place] HPI (chief complaint) Post-traumati c stress disorder, unspecifiedMa gwen depressive disorder, recurrent, unspecifiedAn xietyOpioid Use Disorder, SevereSedativ e, Hypnotic, or Anxiolytic Use Disorder, SevereStimula nt use disorder, severeNicotin e dependence, unspecified, uncomplicated Hallucinogen use 4 Paula Corona. [address] [facility], [place], [place], [id number], [place]. tel: [phone] [facility], [address] [place] [place], [id number], [place] tel:+ [phone] [facility] [place] No Information 4 No Information [facility], [address] [place], [id number], [place] tel:+ [phone] [facility] [place] No Information 4 No Information [facility], [address] [place], [id number], [place] tel:+ [phone] [facility] [place] Stimulant use disorder, severeOpioid Use Disorder, SevereSedativ e, Hypnotic, or Anxiolytic Use Disorder, SevereHalluci nogen useMajor depressive disorder, recurrent, unspecifiedAn xiety 4 Vernon Luz. [address] [place], [place], [id number], [place]. tel: [phone] [facility], [address], [place], [address], [place] tel:+ [phone] [facility] [place] Opioid Use Disorder, Severe 4 Vernon Callesah. [address] [place], [place], [address], [place]. tel:+ [phone] [facility], [address], [place], [address], [place] tel:+ [phone] [facility] [place] No Information 4 No Information [facility], [address], [place], [address], [place] tel:+ [phone] [facility] [place] No Information 4 No Information [facility], [address], [place], [id number], [place] tel:+ [phone] [facility] [place] No Information 4 Nimo Ruth. [address] [place], [address], [place]. [email or web address], [address], [place], [address], [place] tel:+ [phone] [facility] [place] Opioid Use Disorder, Severe 4 No Information [facility], [address] [place] [address], [place], [place], [id number], [place] tel:+ [phone] [facility] [place] No Information 4 No Information [facility], [address] [place] [address], [place], [place], [address], [place] tel:+ [phone] [facility] [place] No Information 4 No Information [facility], [address] [place] [address], [place], [place], [address], [place] tel:+ [phone] [facility] [place] Opioid Use Disorder, SevereSedativ e, Hypnotic, or Anxiolytic Use Disorder, SevereStimula nt use disorder, severeHalluci nogen use 4 Kiersten Clifton. [address] [place], [place], [address], [place]. tel: [facility], [address] [place] [address], [place], [place], [address], [place] tel:+ [phone] [facility] [place] Opioid Use Disorder, Severe 4 No Information [facility], [address] [place] [address], [place], [place], [address], [place] tel:+ [phone] [facility] [place] No Information 4 No Information [facility], [address] [place] [address], [place], [place], [id number], [place] tel:+ [phone] [facility] [place] No Information 4 No Information [facility], [address] [place] [address], [place], [place], [address], [place] tel:+ [phone] [facility] [place] No Information 4 Nimo Ruth. [address] [place], [address], [place]. [facility], [address] [place] [address], [place], [place], [address], [place] tel:+ [phone] [facility] [place] No Information 4 No Information [facility], [address] [place] [address], [place], [place], [address], [place] tel:+ [phone] [facility] [place] No Information 4 No Information [email or web address], [address] [place] [address], [place], [place], [id number], [place] tel:+ [phone] [facility] [place] No Information 4 No Information [facility], [address] [place] [address], [place], [place], [address], [place] tel:+ [phone] [facility] [place] No Information 4 No Information [facility], [address] [place] [address], [place], [place], [address], [place] tel:+ [phone] [facility] [place] No Information No Information [facility], [address] [place] [address], [place], [place], [address], [place] tel:+ [phone] [facility] [place] No Information No Information OFFICE/OUTPA TIENT VISIT, [facility], [address] [place] [address], [place], [place], [address], [place] tel:+ [phone] [facility] [place] HPI (chief complaint) Post-traumati c stress disorder, unspecifiedAn xietyMajor depressive disorder, recurrent, unspecifiedSe dative, Hypnotic, or Anxiolytic Use Disorder, SevereStimula nt use disorder, severeHalluci nogen useNicotine dependence, unspecified, uncomplicated 4 No Information [facility], [address] [place] [address], [place], [place], [address], [place] tel:+ [phone] [facility] [place] No Information No Information [facility], [address] [place] [address], [place], [place], [address], [place] tel:+ [phone] [facility] [place] No Information No Information [facility], [address], [place], [address], [place] tel:+ [phone] [facility] [place] Stimulant use disorder, severeOpioid Use Disorder, Severe 4 Vernon Luz. [address] [place], [place], [address], [place]. tel:[phone] [facility], [address], [place], [address], [place] tel:+ [phone] [facility] [place] No Information 4 Vernon Luz. [address] [place], [place], [address], [place]. tel:[phone] [facility], [address], [place], [address], [place] tel:+ [phone] [facility] [place] Sedative, Hypnotic, or Anxiolytic Use Disorder, SevereStimula nt use disorder, severeHalluci nogen useNicotine dependence, unspecified, uncomplicated Other psychoactive substance use, unspecified, uncomplicated Major depressive disorder, recurrent, unspecifiedAn xietyPost-tra umatic stress disorder, unspecified 4 Michellejalen Wilkinsn. [address] [place], [place], [address], [place]. tel:+ [facility], [address], [place], [address], [place] tel:+ [phone] [facility] [place] No Information No Information [facility], [address], [place], [address], [place] tel:+ [phone] [facility] [place] No Information No Information [facility], [address], [place], [address], [place] tel:+ [phone] [facility] [place] No Information 4 No Information [facility], [address] [address], [address], [place] tel:+ [phone] [facility] [place] No Information 4 No Information [facility], [address] [place] [address], [place], [place], [address], [place] tel:+ [phone] [facility] [place] No Information 4 Nimo Ruth. [address] [place], [address], [place]. [facility], [address] [place] [address], [place], [place], [address], [place] tel: [phone] [facility] [place] No Information 4 No Information [facility], [address] [place] [address], [place], [place], [address], [place] tel:+ [phone] [facility] [place] Sedative, Hypnotic, or Anxiolytic Use Disorder, SevereStimula nt use disorder, severeHalluci nogen useNicotine dependence, unspecified, uncomplicated Other psychoactive substance use, unspecified, uncomplicated Major depressive disorder, recurrent, unspecifiedAn xietyPost-tra umatic stress disorder, unspecified 4 Linda Conklin. [address] [place], [place], [address], [place]. tel:+ [facility], [address] [place] [address], [place], [place], [address], [place] tel:+ [phone] [facility] [place] No Information No Information [facility], [address] [place] [address], [place], [place], [address], [place] tel: [phone] [facility] [place] No Information 4 No Information [facility], [address] [place] [address], [place], [place], [address], [place] tel:+ [phone] [facility] [place] No Information No Information [facility], [address] [place] [address], [place], [place], [address], US tel:+ [phone] [facility] [place] No Information No Information [facility], [address] [place] [address], [place], [place], [address], [place] tel: [phone] [facility] [place] No Information 4 No Information [facility], [address] [place], [place], [address], [place] tel: [phone] [facility] [place] No Information 4 No Information [facility], [address] [place], [place], [address], [place] tel: [phone] [facility] [place] Sedative, Hypnotic, or Anxiolytic Use Disorder, SevereStimula nt use disorder, severeHalluci nogen useNicotine dependence, unspecified, uncomplicated Other psychoactive substance use, unspecified, uncomplicated Major depressive disorder, recurrent, unspecifiedAn xietyPost-tra umatic stress disorder, unspecified 4 Linda Conklin. [address] [place], [place], [address], [place]. tel: [facility], [address] [place], [id number], [place] tel: [phone] [facility] [place] No Information 0 4 No Information [facility], [address] [place] [address] [place], [id number], [place] tel: [phone] [facility] [place] No Information 0 4 No Information PREV VISIT, EST, AGE 12-17 [facility], [address] [place], [place], [address], [place] tel: [phone] [facility] [address] new directions (chief complaint) Encounter for routine child health examination without abnormal findings 4 Pastor Wiseman. [address] [place], [id number], [place]. tel:[phone] [facility], [address] [place], [id number], [place] tel: [phone] [facility] [place] Sedative, Hypnotic, or Anxiolytic Use Disorder, SevereStimula nt use disorder, severeHalluci nogen useNicotine dependence, unspecified, uncomplicated Other psychoactive substance use, unspecified, uncomplicated Major depressive disorder, recurrent, unspecifiedAn xietyPost-tra umatic stress disorder, unspecified Feb-0 4 Linda Conklin. [address] [place], [place], [address], [place]. tel:[phone] [facility], [address] [place] [address], [place], [place], [address], [place] tel:+ [phone] [facility] [place] No Information Feb-0 4 No Information [facility], [address] [place] [address], [place], [place], [address], [place] tel:+ [phone] [facility] [place] No Information Feb-0 4 No Information [facility], [address] [place] [address], [place], [place], [address], [place] tel:+ [phone] [facility] [place] No Information Feb-0 4 Vernon Luz. [address] [place], [place], [address], [place]. tel:+ [phone] [facility], [address] [place] [address], [place], [place], [address], [place] tel:+ [phone] [facility] [place] No Information Feb-0 4 Vernon Luz. [address] [place], [place], [address], [place]. tel:+ [phone] [facility], [address] [place] [address], [place], [place], [address], [place] tel:+ [phone] [facility] [place] No Information Feb-0 4 No Information [facility], [address] [place] [address], [place], [place], [address], [place] tel:+ [phone] [facility] [place] No Information Feb-0 4 No Information [facility], [address] [place] [address], [place], [place], [address], [place] tel:+ [phone] [facility] [place] No Information Feb-0 4 No Information [facility], [address] [place] [address], [place], [place], [address], [place] tel:+ [phone] [facility] [place] No Information Feb-0 6- 4 No Information [facility], [address], [place], [address], [place] tel:+ [phone] [facility] [place] No Information Feb-0 6- 4 No Information [facility], [address] [place] [place], [address], [place] tel:+ [phone] [facility] [place] Sedative, Hypnotic, or Anxiolytic Use Disorder, SevereStimula nt use disorder, severeHalluci nogen useOther psychoactive substance use, unspecified, uncomplicated Major depressive disorder, recurrent, unspecifiedAn xietyPost-tra umatic stress disorder, unspecified Feb-0 5- 4 Linda Conklin. [address] [place], [place], [address], [place]. tel: [email or web address], [address] [place], [place], [address], [place] tel:+ [phone] [facility] [place] No Information Feb-0 5- 4 No Information [facility], [address] [place], [place], [address], [place] tel:+ [phone] [facility] [place] No Information Feb-0 5- 4 No Information [facility], [address], [place], [address], [place] tel:+ [phone] [facility] [place] No Information Feb-0 - 4 No Information [facility], [address] [place], [address], [place] tel:+ [phone] [facility] [place] No Information Feb-0 - 4 No Information [facility], [address] [place] [address], [place], [place], [address], [place] tel:+ [phone] [facility] [place] No Information Feb-0 - 4 No Information [facility], [address] [place] [address], [place], [place], [address], [place] tel: [phone] [facility] [place] No Information Feb-0 4 No Information [facility], [address] [place], [id number], [place] tel: [phone] [facility] [place] No Information Feb-0 4 No Information [facility] [employer], [address], [place], [address], [place] tel: [phone] [facility] [place] No Information Feb-0 4 No Information [facility] [employer], [address], [place], [address], [place] tel: [phone] [facility] [place] No Information b0 4 No Information OFFICE/OUTPA TIENT VISIT, [facility] [employer], [address], [place], [address], [place] tel: [phone] [facility] [place] hpi (chief complaint) Post-traumati c stress disorder, unspecifiedAn xietyMajor depressive disorder, recurrent, unspecifiedSe dative, Hypnotic, or Anxiolytic Use Disorder, SevereStimula nt use disorder, severeHalluci nogen useNicotine dependence, unspecified, uncomplicated b0 4 Paula Corona. [address] [facility], [place], [id number], [place]. tel: [phone] [facility], [address] [place], [id number], [place] tel: [phone] [facility] [place] Sedative, Hypnotic, or Anxiolytic Use Disorder, SevereStimula nt use disorder, severeHalluci nogen useNicotine dependence, unspecified, uncomplicated Other psychoactive substance use, unspecified, uncomplicated Major depressive disorder, recurrent, unspecifiedAn xietyPost-tra umatic stress disorder, unspecified b0 4 Linda Conklin. [address] [place], [place], [address], [place]. tel: [facility], [address], [place], [place], [address], [place] tel:+ [phone] [facility] [employer] [facility] [place] No Information 4 No Information [facility], [address], [place], [address], [place] tel:+ [phone] [facility] [place] No Information 4 No Information [facility], [address] [place], [address], [place] tel: [phone] [facility] [place] No Information 4 Nimo Ruth. [address] [place], [address], [place]. [facility], [address], [place], [address], [place] tel:+ [phone] [facility] [place] No Information 4 No Information [facility], [address] [place], [address], [place] tel: [phone] [facility] [place] No Information 4 Nimo Ruth. [address] [place], [address], [place]. [email or web address], [address], [place], [address], [place] tel:+ [phone] [facility] [place] No Information 4 No Information [facility], [address] [place], [address], [place] tel: [phone] [facility] [place] No Information 4 No Information [facility], [address] [place], [address], [place] tel:+ [phone] [facility] [place] Sedative, Hypnotic, or Anxiolytic Use Disorder, SevereStimula nt use disorder, severeHalluci nogen use 4 Kiersten Clifton. [address] [place], [place], [address], [place]. tel:[phone] [facility], [address], [place], [place], [address], [place] tel:[phone] [facility] [employer] [place] Sedative, Hypnotic, or Anxiolytic Use Disorder, SevereStimula nt use disorder, severeHalluci nogen useNicotine dependence, unspecified, uncomplicated Other psychoactive substance use, unspecified, uncomplicated Major depressive disorder, recurrent, unspecifiedAn xietyPost-tra umatic stress disorder, unspecified 4 Linda Katerin. [address] [place], [place], [address], [place]. tel:+ [facility], [address], [place], [address], [place] tel:[phone] [facility] [employer] [place] No Information 4 No Information [facility], [address] [place], [place], [address], [place] tel:[phone] [facility] [place] No Information 4 No Information [facility], [address] [place], [place], [address], [place] tel:[phone] [facility] [place] No Information 4 Greggfrandy Flory. [address] [place], [address], [place]. [facility], [address] [place], [place], [address], [place] tel:[phone] [facility] [place] Sedative, Hypnotic, or Anxiolytic Use Disorder, SevereStimula nt use disorder, severeHalluci nogen use 4 Kiersten Clifton. [address] [place], [place], [address], [place]. tel:+ [facility], [address] [place], [place], [address], [place] tel:[phone] [facility] [place] No Information 4 No Information [facility], [address], [place], [address], [place] tel:[phone] [facility] [place] No Information 4 No Information [facility], [address] [address], [place], [place], [address], [place] tel:+ [phone] [facility] [place] No Information 4 No Information [facility], [address], [place], [place], [address], [place] tel:+ [phone] [facility] [place] No Information 4 No Information [facility], [address] [place] [address], [place], [place], [address], [place] tel:+ [phone] [facility] [place] No Information 4 No Information [facility], [address] [address], [place], [place], [address], [place] tel:+ [phone] [facility] [place] No Information 4 No Information [facility], [address] [address], [place], [place], [address], [place] tel:+ [phone] [facility] [place] No Information 4 No Information [facility], [address] [address], [place], [place], [address], [place] tel:+ [phone] [facility] Major depressive disorder, recurrent, unspecifiedAn xietyPost-tra umatic stress disorder, unspecified 4 [facility]. [address] [place], [place], [address], [place]. tel: [phone] [facility], [address] [place], [place], [address], [place] tel:+ [phone] [facility] [employer] [place] Stimulant use disorder, severe 4 [facility]. [address] [place], [place], [address], [place]. tel:+ [phone] [facility], [address] [address], [place], [place], [address], [place] tel:+ [phone] [facility] [place] No Information 4 No Information [facility], [address] [address], [place], [place], [address], US tel:+ [phone] [facility] [place] No Information No Information [facility], [address], [place], [address], [place] tel:[phone] [facility] [place] No Information No Information OFFICE/OUTPA TIENT VISIT, [facility], [address], [place], [address], [place] tel:[phone] [facility] [place] HPI (chief complaint) Post-traumati c stress disorder, unspecifiedAn xietyMajor depressive disorder, recurrent, unspecifiedSe dative, Hypnotic, or Anxiolytic Use Disorder, SevereStimula nt use disorder, severeHalluci nogen use 4 Paula Corona. [address] [facility], [place], [address], [place]. tel:[phone] [facility], [address], [place], [address], [place] tel:+ [phone] [facility] [place] No Information No Information [facility], [address], [place], [address], [place] tel:[phone] [facility] [place] No Information No Information [facility], [address], [place], [address], [place] tel:[phone] [facility] [place] Sedative, Hypnotic, or Anxiolytic Use Disorder, SevereStimula nt use disorder, severe [facility]. [address] [place], [place], [address], [place]. tel:[phone] [facility], [address], [place], [address], [place] tel:[phone] [facility] [place] No Information [facility]. [address] [place], [place], [address], [place]. tel:[phone] [facility], [address], [place], [place], [address], [place] tel:+ [phone] [facility] [place] Sedative, Hypnotic, or Anxiolytic Use Disorder, SevereStimula nt use disorder, severeHalluci nogen useNicotine dependence, unspecified, uncomplicated Other psychoactive substance use, unspecified, uncomplicated Major depressive disorder, recurrent, unspecifiedAn xietyPost-tra umatic stress disorder, unspecified 4 Michellejalen Katerin. [address] [place], [place], [address], [place]. tel:+ [facility], [address] [place], [place], [address], [place] tel:+ [phone] [facility] [place] No Information No Information [facility], [address] [place], [place], [address], [place] tel:+ [phone] [facility] [place] No Information 4 No Information [facility], [address] [place] [address] [place], [place], [address], [place] tel:+ [phone] [facility] [place] No Information No Information [facility], [address] [place], [place], [address], [place] tel:+ [phone] [facility] [place] No Information 4 No Information [facility], [address] [place], [place], [address], [place] tel:+ [phone] [facility] [place] Sedative, Hypnotic, or Anxiolytic Use Disorder, SevereStimula nt use disorder, severeHalluci nogen use 4 Kiersten Clifton. [address] [place], [place], [address], [place]. tel:[phone] [facility], [address] [place], [place], [address], [place] tel:+ [phone] [facility] [place] No Information No Information [facility], [address] [place], [place], [address], [place] tel:+ [phone] [facility] [place] No Information 4 No Information [facility], [address] [address], [place], [place], [address], [place] tel:+ [phone] [facility] [place] No Information 4 No Information [facility], [address], [place], [place], [address], [place] tel: [phone] [facility] [place] No Information 4 No Information [facility], [address], [place], [place], [address], [place] tel:+ [phone] [facility] [place] No Information 4 No Information [facility], [address] [address], [place], [place], [address], [place] tel:+ [phone] [facility] No Information 4 No Information [facility], [address], [place], [place], [address], [place] tel:[phone] [facility] [place] No Information 4 No Information [facility], [address], [place], [place], [address], [place] tel:+ [phone] [facility] [place] No Information 4 Nimo Ruth. [address] [place], [address], [place]. [facility], [address], [place], [place], [address], [place] tel:+ [phone] [facility] [place] No Information 4 No Information [facility], [address] [address], [place], [place], [address], [place] tel:+ [phone] [facility] [place] No Information 4 No Information [facility], [address] [address], [place], [place], [address], US tel:+ [phone] [facility] [place] No Information 4 No Information OFFICE/OUTPA TIENT VISIT, EST [facility], [address] [place], [id number], [place] tel:+ [phone] [facility] [place] HPI (chief complaint) Post-traumati c stress disorder, unspecifiedAn xietyMajor depressive disorder, recurrent, unspecifiedSe dative, Hypnotic, or Anxiolytic Use Disorder, SevereStimula nt use disorder, severeNicotin e dependence, unspecified, uncomplicated Other psychoactive substance use, unspecified, uncomplicated 4 Paula Corona. [address] [facility], [place], [address], [place]. tel:[phone] [facility], [address] [place], [address], [place] tel:+ [phone] [facility] [place] Sedative, Hypnotic, or Anxiolytic Use Disorder, SevereStimula nt use disorder, severeHalluci nogen useNicotine dependence, unspecified, uncomplicated Other psychoactive substance use, unspecified, uncomplicated Major depressive disorder, recurrent, unspecifiedAn xiety 4 Linda Coknlin. [address] [place], [place], [address], [place]. tel: [facility], [address] [place], [address], [place] tel:+ [phone] [facility] [place] No Information 4 Nimo Ruth. [address] [place], [address], [place]. [facility], [address] [place], [address], [place] tel:+ [phone] [facility] [facility] [place] No Information 4 No Information [employer], [address] [place], [place], [id number], [place] tel:[phone] [facility] [employer] [facility] [place] No Information 4 Nimo Ruth. [address] [place], [address], [place]. [employer] [facility], [address] [place], [place], [id number], [place] tel:+ [phone] [facility] [employer] [place] No Information 4 No Information [facility], [address], [place], [address], [place] tel:+ [phone] [facility] [employer] [place] No Information 4 No Information [facility], [address] [place], [place], [address], [place] tel:[phone] [facility] [employer] [place] No Information 4 No Information [facility], [address] [place], [place], [id number], [place] tel:+ [phone] [facility] [place] Sedative, Hypnotic, or Anxiolytic Use Disorder, SevereStimula nt use disorder, severeHalluci nogen useNicotine dependence, unspecified, uncomplicated Other psychoactive substance use, unspecified, uncomplicated Major depressive disorder, recurrent, unspecifiedAn xietyPost-tra umatic stress disorder, unspecified 4 Linda Conklin. [address] [place], [place], [id number], [place]. tel: [employer] [facility], [address] [place], [place], [address], [place] tel:+ [phone] [facility] [place] Sedative, Hypnotic, or Anxiolytic Use Disorder, SevereStimula nt use disorder, severeHalluci nogen use 4 Vernon Luz. [address] [place], [place], [id number], [place]. tel:[phone] [employer], [address] [place], [place], [id number], [place] tel:+ [phone] [facility] [employer] [place] No Information 4 Nimo Ruth. [address] [place], [address], [place]. [employer], [address] [place], [place], [address], [place] tel:+ [phone] [facility] [employer] [place] No Information 4 Nimo Ruth. [address] [place], [address], [place]. [facility], [address], [place], [place], [address], [place] tel: [phone] [facility] [employer] [facility] [place] No Information 4 No Information [facility], [address], [place], [place], [id number], [place] tel:[phone] [facility] [email or web address] [facility] [place] No Information 4 No Information [facility], [address], [place], [place], [address], [place] tel:+ [phone] [facility] [employer] [place] Sedative, Hypnotic, or Anxiolytic Use Disorder, SevereStimula nt use disorder, severeHalluci nogen use 4 Kiersten Clifton. [address] [place], [place], [id number], [place]. tel: [employer] [facility], [address], [place], [place], [address], [place] tel:+ [phone] [facility] [employer] [facility] [place] No Information No Information [facility], [address], [place], [place], [address], [place] tel:+ [phone] [facility] [employer] [facility] [place] No Information No Information [facility], [address], [place], [place], [id number], [place] tel:+ [phone] [facility] [employer] [facility] [place] No Information No Information [facility], [address], [place], [place], [id number], [place] tel:+ [phone] [employer] [place] No Information No Information [facility], [address], [place], [place], [address], [place] tel:+ [phone] [employer] [place] No Information No Information [facility], [address], [place], [place], [address], [place] tel:+ [phone] [facility] [place] No Information 4 No Information [place] [employer], [address], [place], [address], [place] tel:+ [phone] [facility] [employer] [place] No Information 4 No Information [facility], [address] [address], [address], [place] tel:[phone] [facility] [place] Sedative, Hypnotic, or Anxiolytic Use Disorder, SevereStimula nt use disorder, severeHalluci nogen useOther psychoactive substance use, unspecified, uncomplicated Nicotine dependence, unspecified, uncomplicated Major depressive disorder, recurrent, unspecifiedAn xietyPost-tra umatic stress disorder, unspecified 4 Linda Conklin. [address] [place], [place], [address], [place]. tel:+ [employer] [facility], [address], [place], [place], [address], [place] tel:+ [phone] [facility] [employer] [place] No Information No Information [employer] [employer], [address], [place], [address], [place] tel:[phone] [facility] [place] No Information No Information OFFICE/OUTPA TIENT VISIT, [facility], [address], [place], [address], [place] tel:[phone] [facility] [place] HPI (chief complaint) Sedative, Hypnotic, or Anxiolytic Use Disorder, SevereStimula nt use disorder, severePost-tr aumatic stress disorder, unspecifiedNi cotine dependence, unspecified, uncomplicated Hallucinogen useOther psychoactive substance use, unspecified, uncomplicated 4 Paula Corona. [address] [facility], [place], [place], [address], [place]. tel:[phone] [facility], [address], [place], [place], [address], [place] tel:+ [phone] [facility] [employer] [place] No Information Elmer-1 [id number] 4 No Information [facility], [address], [place], [address], [place] tel:+ [phone] [facility] [employer] [facility] [place] No Information 4 No Information [facility], [address], [place], [id number], [place] tel:+ [phone] [facility] [employer] [facility] [place] No Information 4 Nimo Ruth. [address] [place], [address], [place]. [facility], [address], [place], [address], [place] tel:+ [phone] [facility] [place] No Information 4 Nimo Ruth. [address] [place], [address], [place]. [employer] [facility], [address], [place], [address], [place] tel:+ [phone] [facility] [place] No Information 4 Kiersten Clifton. [address] [place], [place], [address], [place]. tel: [employer] [facility], [address], [place], [address], [place] tel:+ [phone] [facility] [place] Major depressive disorder, recurrent, unspecifiedAn xietyPost-tra umatic stress disorder, unspecifiedEa ting disorder, unspecified 4 Linda Conklin. [address] [place], [place], [address], [place]. tel:[phone] [employer] [facility], [address], [place], [address], [place] tel:+ [phone] [facility] [employer] [facility] [place] No Information 4 No Information [facility], [address] [place], [place], [address], [place] tel:+ [phone] [facility] [place] No Information 4 No Information [employer], [address], [place], [address], [place] tel:+ [phone] [facility] [place] No Information 4 Nimo Ruth. [address] [place], [address], [place]. [facility], [address] [place], [address], [place] tel:+ [phone] [facility] [place] No Information 4 Nimo Ruth. [address] [place], [address], [place]. [facility], [address] [place], [place], [address], [place] tel:+ [phone] [facility] [place] No Information 4 No Information [facility], [address] [place], [address], [place] tel:+ [phone] [facility] [place] No Information 4 No Information [facility], [address] [place], [address], [place] tel:+ [phone] [facility] [place] No Information 4 No Information [facility], [address] [place], [address], [place] tel:+ [phone] [facility] [place] No Information 4 Nimo Ruth. [address] [place], [address], [place]. [facility], [address] [place], [place], [address], [place] tel:[phone] [facility] [employer] [facility] [place] No Information 4 Nimo Ruth. [address] [place], [address], [place]. [facility], [address], [place], [place], [address], [place] tel:[phone] [facility] [place] No Information 4 No Information [facility], [address], [place], [place], [address], [place] tel:[phone] [facility] [place] No Information 4 No Information [facility], [address], [place], [place], [address], [place] tel:+ [phone] [facility] [place] No Information 4 Nimo Ruth. [address] [place], [address], [place]. [facility], [address], [place], [place], [address], [place] tel:+ [phone] [facility] [place] No Information 4 Nimo Ruth. [address] [place], [address], [place]. [facility], [address], [place], [place], [address], [place] tel:+ [phone] [facility] [place] No Information 4 No Information [facility], [address], [place], [place], [address], [place] tel:+ [phone] [facility] [place] No Information 4 No Information [facility], [address], [place], [place], [address], [place] tel:[phone] [facility] [place] No Information - 4 No Information [facility], [address] [place] [address], [place], [place], [address], [place] tel:[phone] [facility] [place] No Information - 4 No Information [facility], [address] [address], [place], [place], [address], [place] tel:[phone] [facility] [place] No Information - 4 No Information [facility], [address], [place], [place], [address], [place] tel:[phone] [facility] [place] No Information - 4 No Information [facility], [address], [place], [place], [address], [place] tel:[phone] [facility] [place] No Information - 4 No Information [facility], [address] [place] [address], [place], [place], [address], [place] tel:+ [phone] [facility] [place] Major depressive disorder, recurrent, unspecifiedAn xietyPost-tra umatic stress disorder, unspecified 4 Linda Conklin. [address] [place], [place], [address], [place]. tel:[phone] [employer] [facility], [address], [place], [address], [place] tel:+ [phone] [facility] [place] No Information 4 No Information [employer] [facility], [address], [place], [address], [place] tel:+ [phone] [employer] [place] No Information 4 No Information [employer] [facility], [address], [place], [address], [place] tel:+ [phone] [employer] [place] No Information 4 No Information [employer] [facility], [address], [place], [address], [place] tel:+ [phone] [employer] [place] No Information 4 No Information [employer] [facility], [address], [place], [address], [place] tel:+ [phone] [facility] [place] No Information 4 No Information [facility], [address], [place], [address], [place] tel:[phone] [facility] [place] Post-traumati c stress disorder, unspecifiedAn xietyMajor depressive disorder, recurrent, unspecifiedEa ting disorder, unspecified 3 Vernon Luz. [address] [place], [place], [address], [place]. tel:[phone] Family History Family Member Type Diagnosis Age At Onset Problem Family history of personalit y disorder Problem Family history of Alcoholism Problem Family history of Seizure di sorder Problem Family history of Stroke Problem Family history of Cancer, ov jeferson Problem Family history of Thyroid di sorder Problem Family history of Anxiety di sorder Problem Family history of Kidney dis ease Problem Family history of Blood diso rder Immunizations Vaccine Date Status Comments SARS-COV-2 (COVID-19) vaccin e, mRNA, spike protein, LNP, preservative free, 100 mcg/0.5mL dose (Moderna) administered Sourc e: Other Registry SARS-COV-2 (COVID-19) vaccin e, mRNA, spike protein, LNP, preservative free, 100 mcg/0.5mL dose (Moderna) administered Sourc e: Other Registry SARS-COV-2 (COVID-19) vaccin e, mRNA, spike protein, LNP, preservative free, 100 mcg/0.5mL dose (Moderna) administered Sourc e: Other Registry Payers Payer name Insurance type Covered alliance party ID Juju garciacecelia(s) [facility]ot[facility] [id number] Social History Type Description Quantity Date Captured Comments Alcohol Use Details Unknown Caffeine Use Details Unknown Tobacco Use Status Smoking Status No Information Sex Female Gender Identity Male Chief Complaint And Reason For Visit No Information Reason For Referral Reason For Referral No Information Plan Of Treatment Date Type Action Status Goal Depression screening. Due on due Goal Tdap. Due on due Goal Influenza vaccine. Due on due Goal HPV (). Due on due Goal Hepatitis C screening. Due o n due Goal Unhealthy drug use screening . Due on due Goal Fluoride varnish application . Due on due Goal Influenza vaccine. Due on due Goal Tdap. Due on due Goal HPV (1st). Due on due Goal Hepatitis C screening. Due o n due Goal Depression screening. Due on due Goal Fluoride varnish application . Due on due Goal Unhealthy drug use screening . Due on due Goal Tdap. Due on due Goal Depression screening. Due on due Goal Unhealthy drug use screening . Due on due Goal Hepatitis C screening. Due o n due Goal HPV (1st). Due on due Goal Influenza vaccine. Due on Oc due Goal Fluoride varnish application . Due on due Goal Tdap. Due on due Goal Depression screening. Due on due Goal HPV (1st). Due on due Goal Influenza vaccine. Due on due Goal Fluoride varnish application . Due on due Goal HPV (1st). Due on due Goal Influenza vaccine. Due on due Goal Depression screening. Due on due Goal Fluoride varnish application . Due on due Goal Tdap. Due on due Goal Fluoride varnish application . Due on due Goal Depression screening. Due on due Goal HPV (1st). Due on due Goal Tdap. Due on due Goal Influenza vaccine. Due on Ma due Goal Influenza vaccine. Due on Ap due Goal Depression screening. Due on due Goal Tdap. Due on due Goal Fluoride varnish application . Due on due Goal HPV (1st). Due on due Goal Depression screening. Due on due Goal HPV (1st). Due on due Goal Fluoride varnish application . Due on due Goal Tdap. Due on due Goal Influenza vaccine. Due on Ap due Goal Depression screening. Due on due Goal Fluoride varnish application . Due on due Goal Tdap. Due on due Goal HPV (1st). Due on due Goal Influenza vaccine. Due on Ap due Goal Influenza vaccine. Due on Ap due Goal HPV (1st). Due on due Goal Depression screening. Due on due Goal Tdap. Due on due Goal Fluoride varnish application . Due on due Goal Influenza vaccine. Due on Ap due Goal Depression screening. Due on due Goal HPV (1st). Due on due Goal Fluoride varnish application . Due on due Goal Tdap. Due on due Goal HPV (1st). Due on due Goal Tdap. Due on due Goal Influenza vaccine. Due on due Goal Fluoride varnish application . Due on due Goal Depression screening. Due on due Goal Depression screening. Due on due Goal Influenza vaccine. Due on Ma due Goal Fluoride varnish application . Due on due Goal HPV (1st). Due on due Goal Tdap. Due on due Goal Depression screening. Due on due Goal Fluoride varnish application . Due on due Goal HPV (1st). Due on due Goal Tdap. Due on due Goal Influenza vaccine. Due on due Goal Fluoride varnish application . Due on due Goal Depression screening. Due on due Goal HPV (1st). Due on due Goal Influenza vaccine. Due on due Goal Tdap. Due on due Goal Influenza vaccine. Due on due Goal Tdap. Due on due Goal Fluoride varnish application . Due on due Goal Depression screening. Due on due Goal HPV (1st). Due on due Goal Influenza vaccine. Due on Ap r due Goal Depression screening. Due on due Goal Fluoride varnish application . Due on due Goal HPV (1st). Due on due Goal Tdap. Due on due Goal Tdap. Due on due Goal Influenza vaccine. Due on Ap r due Goal Depression screening. Due on due Goal HPV (1st). Due on due Goal Fluoride varnish application . Due on due Goal Influenza vaccine. Due on Ap r due Goal Depression screening. Due on due Goal HPV (1st). Due on due Goal Tdap. Due on due Goal Fluoride varnish application . Due on due Goal Influenza vaccine. Due on Ap r due Goal Tdap. Due on due Goal Fluoride varnish application . Due on due Goal Depression screening. Due on due Goal HPV (1st). Due on due Goal Tdap. Due on due Goal Influenza vaccine. Due on Ap r due Goal HPV (1st). Due on due Goal Fluoride varnish application . Due on due Goal Depression screening. Due on due Goal Fluoride varnish application . Due on due Goal Tdap. Due on due Goal Depression screening. Due on due Goal Influenza vaccine. Due on Ap due Goal HPV (1st). Due on due Goal Depression screening. Due on due Goal Tdap. Due on due Goal Fluoride varnish application . Due on due Goal HPV (1st). Due on due Goal Influenza vaccine. Due on Ap due Goal Influenza vaccine. Due on Ap due Goal Depression screening. Due on due Goal Tdap. Due on due Goal Fluoride varnish application . Due on due Goal HPV (1st). Due on due Goal Fluoride varnish application . Due on due Goal HPV (1st). Due on due Goal Influenza vaccine. Due on Ap due Goal Depression screening. Due on due Goal Tdap. Due on due Goal Depression screening. Due on due Goal Tdap. Due on due Goal Fluoride varnish application . Due on due Goal HPV (1st). Due on due Goal Influenza vaccine. Due on Ap due Goal Fluoride varnish application . Due on due Goal Influenza vaccine. Due on Ap due Goal Depression screening. Due on due Goal Tdap. Due on due Goal HPV (1st). Due on due Goal Tdap. Due on due Goal HPV (1st). Due on due Goal Fluoride varnish application . Due on due Goal Depression screening. Due on due Goal Influenza vaccine. Due on Ap due Goal Influenza vaccine. Due on Ap due Goal HPV (1st). Due on due Goal Tdap. Due on due Goal Depression screening. Due on due Goal Fluoride varnish application . Due on due Goal Influenza vaccine. Due on Ap due Goal Fluoride varnish application . Due on due Goal HPV (1st). Due on due Goal Depression screening. Due on due Goal Tdap. Due on due Goal Tdap. Due on due Goal Influenza vaccine. Due on Ap due Goal Fluoride varnish application . Due on due Goal Depression screening. Due on due Goal HPV (1st). Due on due Goal Depression screening. Due on due Goal HPV (1st). Due on due Goal Influenza vaccine. Due on due Goal Fluoride varnish application . Due on due Goal Tdap. Due on due Goal HPV (1st). Due on due Goal Tdap. Due on due Goal Influenza vaccine. Due on due Goal Depression screening. Due on due Goal Fluoride varnish application . Due on due Goal Depression screening. Due on due Goal Fluoride varnish application . Due on due Goal Tdap. Due on due Goal Influenza vaccine. Due on due Goal HPV (1st). Due on due Goal Tdap. Due on due Goal Fluoride varnish application . Due on due Goal HPV (1st). Due on due Goal Depression screening. Due on due Goal Influenza vaccine. Due on due Goal Tdap. Due on due Goal Depression screening. Due on due Goal Influenza vaccine. Due on due Goal Fluoride varnish application . Due on due Goal HPV (1st). Due on due Goal Influenza vaccine. Due on due Goal Tdap. Due on due Goal Depression screening. Due on due Goal HPV (1st). Due on due Goal Fluoride varnish application . Due on due Goal Tdap. Due on due Goal HPV (1st). Due on due Goal Depression screening. Due on due Goal Influenza vaccine. Due on La due Goal Fluoride varnish application . Due on due Goal Tdap. Due on due Goal Influenza vaccine. Due on due Goal Depression screening. Due on due Goal Fluoride varnish application . Due on due Goal HPV (). Due on due Goal Depression screening. Due on due Goal Influenza vaccine. Due on due Goal Tdap. Due on due Goal Fluoride varnish application . Due on due Goal HPV (1st). Due on due Goal Depression screening. Due on due Goal HPV (1st). Due on due Goal Fluoride varnish application . Due on due Goal Influenza vaccine. Due on due Goal Tdap. Due on due Goal HPV (1st). Due on due Goal Tdap. Due on due Goal Fluoride varnish application . Due on due Goal Depression screening. Due on due Goal Influenza vaccine. Due on due Goal Fluoride varnish application . Due on due Goal HPV (1st). Due on due Goal Influenza vaccine. Due on due Goal Depression screening. Due on due Goal Tdap. Due on due Goal HPV (1st). Due on due Goal Fluoride varnish application . Due on due Goal Tdap. Due on due Goal Influenza vaccine. Due on due Goal Depression screening. Due on due Goal Depression screening. Due on due Goal Tdap. Due on due Goal HPV (1st). Due on due Goal Fluoride varnish application . Due on due Goal Influenza vaccine. Due on due Goal Tdap. Due on due Goal HPV (1st). Due on due Goal Fluoride varnish application . Due on due Goal Depression screening. Due on due Goal Influenza vaccine. Due on La due Goal Depression screening. Due on due Goal Tdap. Due on due Goal Fluoride varnish application . Due on due Goal Influenza vaccine. Due on La due Goal HPV (1st). Due on due Goal Influenza vaccine. Due on La due Goal HPV (1st). Due on due Goal Tdap. Due on due Goal Fluoride varnish application . Due on due Goal Depression screening. Due on due Goal Influenza vaccine. Due on due Goal Fluoride varnish application . Due on due Goal Depression screening. Due on due Goal Tdap. Due on due Goal HPV (1st). Due on due Goal HPV (1st). Due on due Goal Tdap. Due on due Goal Depression screening. Due on due Goal Influenza vaccine. Due on due Goal Fluoride varnish application . Due on due Goal Tdap. Due on due Goal Depression screening. Due on due Goal Fluoride varnish application . Due on due Goal Influenza vaccine. Due on due Goal HPV (1st). Due on due Goal Depression screening. Due on due Goal HPV (1st). Due on due Goal Fluoride varnish application . Due on due Goal Influenza vaccine. Due on due Goal Tdap. Due on due Goal Depression screening. Due on due Goal Influenza vaccine. Due on due Goal Fluoride varnish application . Due on due Goal Tdap. Due on due Goal HPV (1st). Due on due Goal HPV (1st). Due on due Goal Influenza vaccine. Due on due Goal Tdap. Due on due Goal Fluoride varnish application . Due on due Goal Depression screening. Due on due Goal Fluoride varnish application . Due on due Goal Tdap. Due on due Goal Depression screening. Due on due Goal Influenza vaccine. Due on due Goal HPV (1st). Due on due Goal HPV (1st). Due on due Goal Depression screening. Due on due Goal Tdap. Due on due Goal Influenza vaccine. Due on due Goal Fluoride varnish application . Due on due Goal Fluoride varnish application . Due on due Goal Tdap. Due on due Goal HPV (1st). Due on due Goal Influenza vaccine. Due on due Goal Depression screening. Due on due Goal Fluoride varnish application . Due on due Goal HPV (1st). Due on due Goal Depression screening. Due on due Goal Influenza vaccine. Due on due Goal Tdap. Due on due Goal Depression screening. Due on due Goal Fluoride varnish application . Due on due Goal Tdap. Due on due Goal HPV (1st). Due on due Goal Influenza vaccine. Due on due Goal Tdap. Due on due Goal Influenza vaccine. Due on due Goal HPV (1st). Due on due Goal Fluoride varnish application . Due on due Goal Depression screening. Due on due Goal Influenza vaccine. Due on due Goal Fluoride varnish application . Due on due Goal Depression screening. Due on due Goal HPV (1st). Due on due Goal Tdap. Due on due Goal Depression screening. Due on due Goal Tdap. Due on due Goal Influenza vaccine. Due on due Goal HPV (1st). Due on due Goal Fluoride varnish application . Due on due Goal HPV (1st). Due on due Goal Fluoride varnish application . Due on due Goal Depression screening. Due on due Goal Tdap. Due on due Goal Influenza vaccine. Due on due Goal Influenza vaccine. Due on due Goal Depression screening. Due on due Goal HPV (1st). Due on due Goal Tdap. Due on due Goal Fluoride varnish application . Due on due Goal Fluoride varnish application . Due on due Goal HPV (1st). Due on due Goal Influenza vaccine. Due on due Goal Tdap. Due on due Goal Depression screening. Due on due Goal Depression screening. Due on due Goal Influenza vaccine. Due on due Goal Tdap. Due on due Goal HPV (). Due on due Goal Fluoride varnish application . Due on due Goal Depression screening. Due on due Goal Influenza vaccine. Due on due Goal Tdap. Due on due Goal Fluoride varnish application . Due on due Goal HPV (). Due on due Goal Depression screening. Due on due Goal Tdap. Due on due Goal HPV (). Due on due Goal Fluoride varnish application . Due on due Goal Influenza vaccine. Due on due Goal Fluoride varnish application . Due on due Goal Influenza vaccine. Due on due Goal Tdap. Due on due Goal HPV (). Due on due Goal Depression screening. Due on due Goal Depression screening. Due on due Goal Fluoride varnish application . Due on due Goal HPV (1st). Due on due Goal Tdap. Due on due Goal Influenza vaccine. Due on due Goal Tdap. Due on due Goal Fluoride varnish application . Due on due Goal Influenza vaccine. Due on due Goal HPV (1st). Due on due Goal Depression screening. Due on due Goal Influenza vaccine. Due on due Goal Fluoride varnish application . Due on due Goal Tdap. Due on due Goal HPV (1st). Due on due Goal Depression screening. Due on due Goal Depression screening. Due on due Goal Fluoride varnish application . Due on due Goal HPV (1st). Due on due Goal Tdap. Due on due Goal Influenza vaccine. Due on due Goal Depression screening. Due on due Goal HPV (1st). Due on due Goal Fluoride varnish application . Due on due Goal Tdap. Due on due Goal Influenza vaccine. Due on due Goal Tdap. Due on due Goal HPV (). Due on due Goal Depression screening. Due on due Goal Influenza vaccine. Due on due Goal Fluoride varnish application . Due on due Goal Fluoride varnish application . Due on due Goal Depression screening. Due on due Goal Tdap. Due on due Goal HPV (). Due on due Goal Influenza vaccine. Due on due Goal HPV (). Due on due Goal Fluoride varnish application . Due on due Goal Depression screening. Due on due Goal Influenza vaccine. Due on due Goal Tdap. Due on due Goal HPV (). Due on due Goal Tdap. Due on due Goal Influenza vaccine. Due on due Goal Fluoride varnish application . Due on due Goal Depression screening. Due on due Goal Depression screening. Due on due Goal Influenza vaccine. Due on due Goal Fluoride varnish application . Due on due Goal Tdap. Due on due Goal HPV (1st). Due on due Goal Depression screening. Due on due Goal Tdap. Due on due Goal Influenza vaccine. Due on due Goal HPV (1st). Due on due Goal Fluoride varnish application . Due on due Goal Fluoride varnish application . Due on due Goal HPV (1st). Due on due Goal Influenza vaccine. Due on due Goal Depression screening. Due on due Goal Tdap. Due on due Goal Tdap. Due on due Goal HPV (1st). Due on due Goal Fluoride varnish application . Due on due Goal Depression screening. Due on due Goal Influenza vaccine. Due on due Goal Fluoride varnish application . Due on due Goal Influenza vaccine. Due on due Goal Tdap. Due on due Goal HPV (1st). Due on due Goal Depression screening. Due on due Goal Fluoride varnish application . Due on due Goal Influenza vaccine. Due on due Goal Depression screening. Due on due Goal HPV (1st). Due on due Goal Tdap. Due on due Goal Fluoride varnish application . Due on due Goal Influenza vaccine. Due on due Goal Tdap. Due on due Goal HPV (1st). Due on due Goal Depression screening. Due on due Goal Fluoride varnish application . Due on due Goal HPV (1st). Due on due Goal Depression screening. Due on due Goal Tdap. Due on due Goal Influenza vaccine. Due on due Goal HPV (1st). Due on due Goal Influenza vaccine. Due on due Goal Fluoride varnish application . Due on due Goal Tdap. Due on due Goal Depression screening. Due on due Goal Tdap. Due on due Goal Depression screening. Due on due Goal Influenza vaccine. Due on due Goal Fluoride varnish application . Due on due Goal HPV (1st). Due on due Goal Depression screening. Due on due Goal HPV (1st). Due on due Goal Tdap. Due on due Goal Influenza vaccine. Due on due Goal Fluoride varnish application . Due on due Goal Fluoride varnish application . Due on due Goal Influenza vaccine. Due on due Goal Depression screening. Due on due Goal HPV (1st). Due on due Goal Tdap. Due on due Goal Fluoride varnish application . Due on due Goal HPV (1st). Due on due Goal Tdap. Due on due Goal Depression screening. Due on due Goal Influenza vaccine. Due on due Goal Depression screening. Due on due Goal HPV (1st). Due on due Goal Fluoride varnish application . Due on due Goal Influenza vaccine. Due on due Goal Tdap. Due on due Goal Depression screening. Due on due Goal Fluoride varnish application . Due on due Goal HPV (1st). Due on due Goal Influenza vaccine. Due on due Goal Tdap. Due on due Goal HPV (1st). Due on due Goal Influenza vaccine. Due on due Goal Tdap. Due on due Goal Depression screening. Due on due Goal Fluoride varnish application . Due on due Goal Fluoride varnish application . Due on due Goal Tdap. Due on due Goal Depression screening. Due on due Goal Influenza vaccine. Due on due Goal HPV (1st). Due on due Goal Depression screening. Due on due Goal Influenza vaccine. Due on due Goal Fluoride varnish application . Due on due Goal Tdap. Due on due Goal HPV (1st). Due on due Goal Tdap. Due on due Goal Fluoride varnish application . Due on due Goal Influenza vaccine. Due on due Goal Depression screening. Due on due Goal HPV (1st). Due on due Goal Influenza vaccine. Due on due Goal HPV (1st). Due on due Goal Tdap. Due on due Goal Fluoride varnish application . Due on due Goal Depression screening. Due on due Goal Tdap. Due on due Goal Influenza vaccine. Due on due Goal Depression screening. Due on due Goal Fluoride varnish application . Due on due Goal HPV (1st). Due on due Goal Influenza vaccine. Due on due Goal HPV (1st). Due on due Goal Fluoride varnish application . Due on due Goal Tdap. Due on due Goal Depression screening. Due on due Goal Fluoride varnish application . Due on due Goal Tdap. Due on due Goal HPV (1st). Due on due Goal Depression screening. Due on due Goal Influenza vaccine. Due on due Goal Depression screening. Due on due Goal Fluoride varnish application . Due on due Goal Influenza vaccine. Due on due Goal Tdap. Due on due Goal HPV (). Due on 3 due History Of Present Illness Encounter Date Complaint History Of Prese nt Illness hpi Collateral with nursing this morning. Anthony was able to attend an appointment for Nexplanon removal earlier this week and IUD placement. No current psychotropic medication concerns. Last appointment, increased to Remeron 15mg po QHS to continue to target mood symptoms. Today he reports being happy he talked with the Levelman and did decide on getting an IUD. He states remember when we talked about it, I decided to get it { control] . This morning he was happy to be in art and this is the class I loveeeeee doing and states I am enjoying being here too and accepting it, as I think I am leaving in August . Recent phone call with dad, first phone contact in about 2 months. Her dad is 303 days sober, on the day I talked to him he was 302 days sober and did not know her father was currently sober prior to this conversation. Dad currently has a job and transportation. Anthony's current plan is to go and live with his dad in [place] He has been tolerating the dose increase of Remeron. Denies medications SE concerns. Mood and anxiety continues to be more manageable on sertraline, mirtazapine, and buspirone, With a recent trigger, I calmed myself down and didn't flip and states the medicine you went up on a couple weeks ago, it kicked in, it helps and that his mood is more mellow .No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 running from a dog. Believes he may have had a seizure, concussion. -Hx of asthma, DM-Heart murmur - has a cardiology appointment scheduled. -Denies allergies to medications. Functional Status Date Functional Assessmen t No Information Instructions Date Instruction Additional Infor awa CPE labs reviewed fr om Dr Mitchell nothing more to add Related to Encounter for routine child health examination without abnormal findings Assessments Type Assessment Date No Information Patient Care Teams Name Effective Dates (start - stop) Status Members No Information
--- OUTSIDE RECORDS SUMMARY | 2025-01-06 07:49 | XMS_ITS | Continuity of Care Document ---
Author Organization [facility] Address [address] [place] [address] Phone Care Team Providers Care Trainmaster Name Role Phone Kwame Reynaga Unavailable Unavailable Allergies, Adverse Reactions, Alerts Substance Reaction Status Criticality No Known Allergies Active No Inform ation Medications Medication Instructions Dosage Effective Dates (start - stop) Status Comments Trileptal 150 mg tablet take 1 tablet by oral route every day 150 MG - Active prazosin 2 mg capsule take 1 capsule by oral route every bedtime 2 MG - Active sertraline 25 mg tablet take 1 tablet by oral route every day 25 MG - Active doxepin 10 mg capsule take 1 capsule by oral route 3 times every day 10 MG - Active sertraline 25 mg tablet take 1 tablet by oral route every day 25 MG - No Longer Active prazosin 2 mg capsule take 1 capsule by oral route every bedtime 2 MG - No Longer Active Trileptal 150 mg tablet take 1 tablet by oral route every day 150 MG - No Longer Active Procedures Procedure Date DRUG TEST PRSMV DIR OPT OBS PSYCH DIAG EVAL W/MED SRVCS PSYCH DIAGNOSTIC EVALUATION Advance Directives Directive Yes / No Effective Date File Name No Information Encounters Encounter Description Practice Location Reason(s) For Visit Diagnoses Date Provider Providers Copied on Encounter PSYCH DIAG EVAL W/MED SRVCS [facility], [address] [place], [place], [id number] , [place] tel:[phone] [facility] Est Care (chief complaint) Cocaine use disorder, SevereOpioid Use Disorder, SevereAmphetamine type substance use disorder, severeAlcohol Use Disorder, SevereBody mass index [BMI] 27.0-27.9, adultMood disorder 5 Juhi Puente. [address] [place] [address], [id number], . tel: [phone] PSYCH DIAGNOSTIC EVALUATION [facility], [address] [place] [address], [id number] , tel: [phone] [facility] Cocaine use disorder, SevereOpioid Use Disorder, SevereAmphetamine type substance use disorder, severeAlcohol Use Disorder, Severe 5 Esvin Batista. [address] [place] [address], [id number] , [place]. tel: [phone] Family History Family Member Type Diagnosis Age At Onset No Information Payers Payer name Insurance type Covered green party ID Authoriza tion(s) [employer] Medicaid CFC [id number] Medicaid Wrap - [employer] [place] [id number] Social History Type Description Quantity Date Captured Comments Alcohol Use Details No 5 glasses Caffeine Use Details coffee and energy drinks O Tobacco Use Status Cigarette smoker Smoking Status Current every day smoker 2024 Smoking Tobacco Use Details Cigarette: No Details Available Cigarette: No Details Available [id number]-[id number] Tobacco Use Details Smokeless: No Details Available Smokeless: No Details Available [id number] SexFemaleGender 1962 Vital Signs Date / Time: Height Weight BMI Pulse Rate Blood Pressure Temperature Respiratory Rate Body Surface Area Head Circumference Head Circ. Percentile Wt./Jonathan. Percentile BMI percentile Pulse Ox Inhaled Ox 1:23 PM 65.00 in 76.204 kg (168.00 lbs) 27.9 6 kg/m eter (2) 80 /min 116/62 mm[Hg] 97.20 F 18 /min 90 98 % 21 % Chief Complaint And Reason For Visit From encounter dated '01/06/2025 12:49'. Est Care (chief complaint). Description: Pt here to est care and is having some Depression as well as pain. Delivered a baby 12/28 and is looking toward going to family support housing for the remainder of her recovery. Baby's dad is in detox at this time. Crack/Opioid were her D.O.C."s but states 2 months clean so far. RWeidmanLPNDelivered baby at [facility] in [facility] - All Subs Reason For Referral Reason For Referral No Information Plan Of Treatment Date Type Action Status Goal PRAPARE ASSESSMENT. Due on O due Goal Depression screening. Due on due Goal Tdap. Due on due Goal Influenza vaccine. Due on Oc due Goal Hepatitis C screening. Due o n due Goal Tdap Vaccine. Due on 2024 due Goal Unhealthy drug use screening . Due on due Goal Hep A. Due on du e Goal RLP. Due on due Goal Tobacco cessation counseling completed Goal Lifestyle education regardin g diet completed Goal PRAPARE ASSESSMENT. Due on O due Goal Influenza vaccine. Due on Oc due Goal Depression screening. Due on due Goal Tdap Vaccine. Due on 2024 due Goal Hepatitis C screening. Due o n due Goal Tdap. Due on due Goal Unhealthy drug use screening . Due on due Goal RLP. Due on due Goal Hep A. Due on du e Appointment Gemini Drake BOOKED Appointment Gemini Drake BOOKED Appointment Gemini Drake BOOKED History Of Present Illness Encounter Date Complaint History Of Prese nt Illness Est Care Pt here to est c are and is having some Depression as well as pain. Delivered a baby 12/28 and is looking toward going to family support housing for the remainder of her recovery. Baby's dad is in detox at this time. Crack/Opioid were her D.O.C. s but states 2 months clean so far. RWeidmanLPNDelivered baby [facility] [place] All Subs Functional Status Date Functional Assessmen t No Information Instructions Date Instruction Additional Infor awa Giving encouragement to exercise Related to Body mass index [BMI] 27.0-27.9, adult Lifestyle education regarding di et Related to Body mass index [BMI] 27.0-27.9, adult Assessments Type Assessment Date assessment Cocaine use disorder, Severe Dec assessment Opioid Use Disorder, Severe assessment Amphetamine type substance use d isorder, severe assessment Alcohol Use Disorder, Severe Dec assessment Body mass index [BMI] 27.0-27.9, adult assessment Mood disorder Patient Care Teams Name Effective Dates (start - stop) Status Members No Information
[2025-01-11 18:46] VITALS: BP 112/75; PULSE 83; TEMP 36.6; O2SAT 98; BMI 27.5
--- NOTE | 2025-01-11 18:53 | PC.NURSE ---
PT HAS AT [facility] ON 12/28 PT C/O ODOR AND YELLOW DRAINAGE TO INCISION. UPON ASSESSMENT INCISION LOOKS CLEAN AND DRY.
--- NOTE | 2025-01-11 19:33 | ED_ITS ---
HPI - Wound/Laceration General Chief Complaint: Wound/Laceration Stated Complaint: C SECTION COMING OPEN AFTER 3 WEEKS Time Seen by Provider: 01/11/25 19:29 Source: patient Mode of arrival: walk-in Limitations: no limitations History of Present Illness HPI narrative: C section at [facility] 12/28/24. Now presents with complaint of odor at the incision and mild drainage. No complaint of pain. Still has some lochia. She is breast feeding. Past history of ROSAURA and self mutilation. No fever or nausea. Mild abdominal pain Related Data Home Medications ?Medication ?Instructions ?Recorded ?Confirmed aripiprazole 5 mg tablet 5 mg PO DAILY 12/30/2311/07 levetiracetam 500 mg tablet 500 mg PO DAILY 12/30/23 0 11/07/24 (Keppra) olanzapine 5 mg tablet (Zyprexa) 5 mg PO DAILY 4 11/07/24 prazosin 2 mg capsule 2 mg PO DAILY 12/30/2311/07 sertraline 50 mg tablet 50 mg PO Q24H 12/30/2311/07 ondansetron HCl 4 mg tablet 4 mg PO Q6H PRN nausea and vomiting 11/07/24 11/07/24 Allergies Allergy/AdvReac Type Severity Reaction Status Date / Time ibuprofen (From Motrin) Allergy Intermediate Rash Verified 01/11/25 18:46 citric acid Allergy Hives Verified 01/11/25 18:46 Review of Systems ROS0 Status of ROS 10 or more systems reviewed and unremark able except as noted in history and below PFSH PFSH Social History Little interest or pleasure in doing things: not at all Feeling down, depressed, or hopeless: not at all Exam Constitutional Vital Signs, click to edit/add: Last Vital Signs Temp 97.9 F 01/11/25 21:48 Pulse 65 01/11/25 21:48 Resp 18 01/11/25 21:48 BP 105/62 01/11/25 21:48 Pulse Ox 100 01/11/25 21:48 O2 Del Method Room Air 01/11/25 18:46 Common normals: no apparent distress, average body habitus, oriented x3, no limitations, healthy appearing, alert and well nourished [facility] Common normals: normocephalic, head/scalp atraumatic, hearing grossly normal bilaterally and external ears normal Eye Common normals: PERRL and EOMs intact bilaterally Respiratory Common normals: normal respiratory effort, no retractions, no use of accessory muscles and clear to auscultation bilaterally Cardio Common normals: regular rate, regular rhythm, S1 normal heart sound and S2 normal heart sound GI Common normals: soft to palpation Other: incision intact. Few mildly erythematous sites . no obvious discharge but does have noticeable odor. This site also is at the abdominal fold and moist. mild tenderness of her abdomen about the incision Extremity Common normals: normal to inspection and full ROM Neuro Common normals: oriented x3, CN's II-XII intact bilaterally, moves all extremities and no focal motor deficits Psych Appearance: grossly normal Course Vital Signs Vital signs: Vital Signs Temperature 97.9 F 01/11/25 18:46 Pulse Rate 83 01/11/25 18:46 Respiratory Rate 16 01/11/25 18:46 Blood Pressure 112/75 01/11/25 18:46 Pulse Oximetry 98 01/11/25 18:46 Oxygen Delivery Method Room Air 01/11/25 18:46 Temperature 97.9 F 01/11/25 21:48 Pulse Rate 65 01/11/25 21:48 Respiratory Rate 18 01/11/25 21:48 Blood Pressure 105/62 01/11/25 21:48 Pulse Oximetry 100 01/11/25 21:48 Oxygen Delivery Method Room Air 01/11/25 18:46 MDM - Wound/Laceration MDM Narrative Medical decision making narrative: patient s/p C/S about 3 weeks ago at [facility]. Now presents complaining of smell from her incision site and mild drainage. Exam finds the edges of the incision to be juxtaposed. There are a couple of areas of mild focal 3mm erythema and there is a smell. No obvious cellulitiis. minimal drainage. suspect the smell may be fungal given her abdominal fold is overlying the incision. CT obtained and no findings of abscess. CBC, BMP WNL. Patient advised of the working diagnosis of tinea coporis . will cover with nystatin . Provide short course of keflex due to the few focal erythematous sites and recommend close follow up with her doctor Lab Data Labs: Lab Results 01/11/25 Range/Units 20:32 WBC 10.2 (4.0-11.0) 10^3/uL RBC 4.32 (4.20-5.40) 10^6/uL Hgb 13.2 (12.0-16.0) g/dL Hct 40.4 (36.0-48.0) % MCV 93.5 (81.0-99.0) fL MCH 30.6 (26.7-34.0) pg MCHC 32.7 (29.9-35.2) g/dL RDW 13.9 (11.0-15.0) % Plt Count 514 H (150-450) 10^3/uL MPV 8.7 L (9.5-13.5) fL Neut % (Auto) 44.6 (43.0-75.0) % Lymph % (Auto) 47.6 (20.5-60.0) % Cata[place]oula % (Auto) 4.9 (1.7-12.0) % Eos % (Auto) 1.8 (0.9-7.0) % Baso % (Auto) 0.9 (0.2-2.0) % Neut # (Auto) 4.5 (1.4-6.5) 10^3/uL Lymph # (Auto) 4.8 H (1.2-3.8) 10^3/uL [place]oula # (Auto) 0.5 (0.3-0.8) 10^3/uL Eos # (Auto) 0.2 (0.0-0.7) 10^3/uL Baso # (Auto) 0.1 (0.0-0.1) 10^3/uL Abs Immat Gran (auto) 0.02 (0.00-0.03) 10^3/uL Imm/Tot Granulo (auto) 0.2 (0.0-0.5) % Sodium 140 (136-145) mmol/L Potassium 3.9 (3.5-5.1) mmol/L Chloride 106 (98-107) mmol/L Carbon Dioxide 23.4 (21.0-32.0) mmol/L Anion Gap 14.5 BUN 6.0 L (6.4-19.3) mg/dL Creatinine 0.49 L (0.55-1.02) mg/dL Est GFR ( Amer) >60 (>=60 mL/min/1.73m^2) Est GFR (Non-Af Amer) >60 (>=60 mL/min/1.73m^2) BUN/Creatinine Ratio 12.2 Glucose 83 (74-106) mg/dL Lactate 0.5 (0.4-2.0) mmol/L Calcium 9.1 (8.5-10.1) mg/dL Total Bilirubin 0.2 (0.2-1.0) mg/dL AST 18 (15-37) U/L ALT 22 (14-59) U/L Alkaline Phosphatase 132 H (46-116) U/L Total Protein 8.1 (6.4-8.2) g/dL Albumin 3.5 (3.4-5.0) g/dL Globulin 4.6 g/dL Albumin/Globulin Ratio 0.8 Discharge Plan Discharge Chief Complaint: Wound/Laceration Clinical Impression: Tinea corporis Patient Disposition: Home, Self-Care Prescriptions / Home Meds: No Action levetiracetam [Keppra] 500 mg tablet 500 mg PO DAILY olanzapine [Zyprexa] 5 mg tablet 5 mg PO DAILY sertraline 50 mg tablet 50 mg PO Q24H prazosin 2 mg capsule 2 mg PO DAILY aripiprazole 5 mg tablet 5 mg PO DAILY ondansetron HCl 4 mg tablet 4 mg PO Q6H PRN (Reason: nausea and vomiting) Print Language: Pashto Instructions: Tinea Corporis (ED) Additional Instructions: follow up with your doctor this week for recheck Referrals: Physician,Non-Staff, MD [Primary Care Provider] - 1 week
--- OUTSIDE RECORDS SUMMARY | 2025-01-11 19:36 | XMS_ITS | Clinical Summary ---
Author Organization [facility] Address [address] [place] [address] Care Team Providers Care Preventive Medicine Officer Name Role Phone Unavailable Primary Care Provider Unavailabl e Encounters DateTypeDepartmentCare QrodSvrbmjjlted92/31/2025Clinisync Result Encounter [facility] External Department Unsolicited Iftikhar Domingo DO from Last 3 Months Social History Tobacco UseTypesPacks/DayYears UsedDateSmoking Tobacco: Never Assessed CommentsUnknownSex and Gender InformationValueDate RecordedSex Assigned at Not on fileLegal OjtOjrajt55/16/2025 11:30 AM EDTGender IdentityNot on file Sexual OrientationNot on file Plan of Treatment Health MaintenanceDue DateLast DoneCommentsMMR Vaccines (1 of 1 - Standard series)2006DTaP/Tdap/Td Vaccines (1 - Tdap)2012Varicella Vaccines (1 of 2 - 13+ 2-dose series)2018HPV Vaccines (1 - 3-dose series)2020 Meningococcal B Vaccine (1 of 2 - Standard)2021Hepatitis B Vaccines (1 of 3 - 19+ 3-dose series)5COVID-19 Vaccine (4 - 2024- season)2024 08/04/2021, 08/19/2020, 07/29/2020Influenza Vaccine (#1)5012/02/2020, 11/23/2019HIB VaccinesAged OutNo longer eligible based on patient's age to complete this topicHepatitis A VaccinesAged OutNo longer eligible based on patient's age to complete this topicIPV VaccinesAged OutNo longer eligible based on patient's age to complete this topicMeningococcal VaccineAged OutNo longer eligible based on patient's age to complete this topicPneumococcal Vaccine: Pediatrics (0 to 5 Years) and At-Risk Patients (6 to 64 Years)Aged OutNo longer eligible based on patient's age to complete this topicRotavirus VaccinesAged Out No longer eligible based on patient's age to complete this topic Procedures Procedure NamePriorityDate/TimeAssociated DiagnosisCommentsTBH URINE MICROSCOPIC LFIYJowwbjl54/31/2025 11:40 AM EDT [facility] UA (CLEAN/CATCH) CLINICAL CYTOGENETICIST SCIENTIST/MICRO IF IND.Cdwozjk2311/07/2024 11:40 AM EDT from Last 3 Months Results * (ABNORMAL) [facility] URINE MICROSCOPIC ONLY (11/07/2024 11:40 AM EDT)ComponentValue Ref RangeTest MethodAnalysis TimePerformed AtPathologist SignatureTBH WBC2-5 (A)NONE SEEN #/HPFTBHTBH RBC0-20 - 2 #/HPFTBHBACTERIA URINETRACE(A)NONE SEEN #/HPFTBHMUCUS URINENONE SEENNONE SEENTBHSQUAMOUS EPITHELIAL CELL URINEFEW(A) NONE/RARE #/LPFTBHCRYSTALS SEEN?None SeenNone Seen #/HPFTBHCAST SEEN?NONE SEEN NONE SEEN #/LPFTBHURINE CULTURE INDICATEDNOTBHSpecimen (Source)Anatomical Location / LateralityCollection Method / VolumeCollection TimeReceived Time 11/07/2024 11:40 AM EDT11/07/2024 11:45 AM EDT Narrative CLINISYNC - 11/07/2024 12:36 PM EDT Authorizing ProviderResult TypeResult StatusCorey Jose L DOCLINISYNCFinal Result Performing OrganizationAddressCity/State/ZIP CodePhone Number CLINISYNC [facility] * (ABNORMAL) [facility] UA (CLEAN/CATCH) CLINICAL CYTOGENETICIST SCIENTIST/MICRO IF IND. (11/07/2024 11:40 AM EDT) ComponentValueRef RangeTest MethodAnalysis TimePerformed AtPathologist SignatureCOLOR URINELT. YELLOWYELLOWTBHCLARITY URINECLEARCLEARTBHSPECIFIC GRAVITY URINE1.0201.005 - 1.025TBHPH URINE7.05.0 - 9.0TBHPROTEIN URINENEGATIVE NEG/TRACE mg/dLTBHGLUCOSE URINE UANEGATIVENEGATIVE mg/dLTBHBILIRUBIN URINE NEGATIVENEGATIVETBHKETONES URINENEGATIVENEGATIVE mg/dLTBHBLOOD URINENEGATIVE NEGATIVETBHNITRITE URINENEGATIVENEGATIVETBHUROBILINOGEN URINE1.00.2 - 1.0 EU/dLTBHLEUKOCYTE ESTERASE URINETRACE(A)NEGATIVETBHURINE MICROSCOPIC INDICATED YESTBHSpecimen (Source)Anatomical Location / LateralityCollection Method / VolumeCollection TimeReceived Time11/07/2024 11:40 AM EDT11/07/2024 11:45 AM EDT Narrative [facility]IN[facility]YNC - 11/07/2024 12:36 PM EDT Authorizing ProviderResult TypeResult StatusCorey Jose L DOCLINISYNCFinal Result Performing OrganizationAddressCity/State/ZIP CodePhone Number CLINISYNC [facility] from Last 3 Months Insurance * Guarantor: Gemini DrakeAccotavares TypeRelation to PatientDate of BirthPhone Billing AddressPersonal/DuevccMgya97/06/2006 [facility] [facility] [address] [place] [address]
--- OUTSIDE RECORDS SUMMARY | 2025-01-11 19:36 | XMS_ITS | Clinical Summary ---
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 Guarantor: *NEW ACCOUNT*Account TypeRelation to PatientDate of BirthPhone Billing AddressPersonal/Family [address] [id number] Advance Directives NameRelationshipHealthcare Agent RelationshipCommunicationAdam CoxSpouseHealth Care Agent* * [email or web address] Care Teams Team MemberRelationshipSpecialtyStart DateEnd Date ProchorofJesus persaud MD [address] [place], [place] [id number] PhysicianPediatric Neurology10/12/22 Birdie Singh MD [address] [place], [place] [id number] PhysicianEndocrinology/Medicine11/09/22 Lexi Mckeon APRN-REWEAVER [address] [place], [place] [id number] SPAWlsuickghn12/7/23 Elver Lopez DO [address] [place], [place] [address] PhysicianPediatric Cardiology05/10/23 Skyla Molina DO [address] [place], [place] [address] PhysicianObstetrics/Gynecology07/12/23
--- NOTE | 2025-01-11 19:43 | CT_ITS ---
The [address] [address] Patient Name: ТАТЬЯНА GUZMAN MRN: [id number] date: 2005 Sex: F Assigned Patient Location: ER Current Patient Location: ER Accession/Order Number: [id number] Exam Date: 01/11/2025 20:46 Report Date: 01/11/2025 21:08 At the request of: GERARDO VEGA MD Procedure: CT abdomen pelvis w con CT Abdomen and Pelvis withcontrast TECHNIQUE: Axial imaging with 2-D reconstruction. The CT exam was performed using one or more the following dose reduction techniques: Automated exposure control, adjustment of the MA and/or Kv according to patient size, or use of the iterative reconstruction technique. COMPARISON: None History: Postop pain LIMITATIONS: None LOWER THORAX Unremarkable LIVER: Unremarkable GALLBLADDER: No gallbladder abnormality identified. BILE DUCTS: No dilatation SPLEEN: Unremarkable PANCREAS: Unremarkable ADRENAL GLANDS: Unremarkable KIDNEYS:Unremarkable AORTA: No abdominal aortic aneurysm identified. RETROPERITONEUM: No significant retroperitoneal abnormalities identified. MESENTERY:Unremarkable STOMACH:Unremarkable SMALL BOWEL: The small bowel loops are nondistended. APPENDIX: The appendix is normal. COLON: Unremarkable URINARY BLADDER: Urinary bladder is unremarkable. REPRODUCTIVE SYSTEM: Gravid uterus. PNEUMOPERITONEUM: None PERITONEAL FLUID:None BONY STRUCTURES: Unremarkable ABDOMINAL WALL: incision. No fluid collections. No complication. CT/CT abdomen pelvis w con IMPRESSION: uterus. No fluid collections. Unremarkable incision. No acute abdominal pelvic findings. Impression dictated by: Weston Ulrich M.D. 01/11/2025 9:08 PM Dictation Location: [employer] Electronically authenticated by: [id number] Y Date: 01/11/2025 21:08
--- NOTE | 2025-01-11 20:42 | PC.NURSE ---
mild tenderness near incision
[2025-01-11 20:43] LABS: Hematocrit 40.4 % (36.0-48.0); Hemoglobin 13.2 g/dL (12.0-16.0); Immature Granulocytes Abs Auto 0.02 10^3/uL (0.00-0.03); Immature Granulocytes Pct Auto 0.2 % (0.0-0.5); Lymphocytes Absolute Auto 4.8 10^3/uL (1.2-3.8); Mean Corpuscular HGB Conc 32.7 g/dL (29.9-35.2); Mean Corpuscular Hemoglobin 30.6 pg (26.7-34.0); Mean Corpuscular Volume 93.5 fL (81.0-99.0); Platelet Count 514 10^3/uL (150-450); Red Blood Count 4.32 10^6/uL (4.20-5.40); White Blood Count 10.2 10^3/uL (4.0-11.0)
[2025-01-11 20:59] LABS: Lactate/Lactic Acid 0.5 mmol/L (0.4-2.0)
[2025-01-11 21:05] LABS: Alanine Aminotransferase 22 U/L (14-59); Albumin Globulin Ratio 0.8; Albumin Level 3.5 g/dL (3.4-5.0); Alkaline Phosphatase 132 U/L (46-116); Anion Gap 14.5; Aspartate Amino Transferase 18 U/L (15-37); Blood Urea Nitrogen 6.0 mg/dL (6.4-19.3); Calcium 9.1 mg/dL (8.5-10.1); Carbon Dioxide 23.4 mmol/L (21.0-32.0); Chloride 106 mmol/L (98-107); Estimated GFR (African America >60 (>=60 mL/min/1.73m^2); Estimated GFR (Non-African Ame >60 (>=60 mL/min/1.73m^2); Globulin 4.6 g/dL; Glucose 83 mg/dL (74-106); Potassium 3.9 mmol/L (3.5-5.1); Sodium 140 mmol/L (136-145); Total Protein 8.1 g/dL (6.4-8.2)
[2025-01-11 21:48] VITALS: BP 105/62; PULSE 65; TEMP 36.6; O2SAT 100
[2025-01-11] MEDS: CEPHALEXIN 500 MG CAPSULE PO (22:02)
== END 2025-01-11 22:07 | disposition home or self-care (01) ==
PROVIDERS: Emergency Provider Internal Medicine
DX: O90.89 Other complications of the puerperium, not elsewhere classified (principal); B35.4 Tinea corporis; Z91.52 Personal history of nonsuicidal self-harm
CPT/HCPCS: 36415; 74177; 80053; 83605; 85025; 99285; Q9967